=== PATIENT | female | born 1935 ===

== ENCOUNTER 2019-05-03 06:12 | Inpatient (IN) | payer MEDICARE, SELFPAY ==
--- NOTE | ~2019-05-03 | CT_ITS ---
EXAMINATION: CT cervical spine wo con EXAM DATE: 05/03/2019 08:29 INDICATION: Fall, head injury. TECHNIQUE: Spiral CT of the cervical spine was performed without contrast. Axial images were reviewe d. Coronal and sagittal reformatted images were also reviewed. The dose-length product (DLP) for thi s examination was 276.33 mGy-cm. The exposure was tailored according to patient size (auto mA exposu re control), and iterative reconstruction (ASIR) was used as additional dose reduction technique. Com parison is made to prior examination from 01/24/2019. FINDINGS: There is no evidence of acute cervical fracture. The odontoid process is intact. Pre-dens space is normal. Prevertebral soft tissue is normal. There are no soft tissue abnormalities identi fied. There is no disc space widening or traumatic vertebral body subluxation suspected. Mild to mo derate cervical disc disease. Severe left facet arthropathy at C3-4, moderate at some other cervical levels. A detailed level by level evaluation of spondylosis can be added as addendum if requested. IMPRESSION: 1. No acute cervical fracture. 2. Cervical spondylosis. Reviewed, dictated and finalized at location B.
--- NOTE | ~2019-05-03 | US_ITS ---
EXAMINATION: US renal BI DATE: 05/06/2019 10:38 INDICATION: Acute on chronic kidney disease TECHNIQUE: Multiple grayscale and Doppler ultrasound images of the kidneys were obtained. COMPARISON: None. FINDINGS: The right kidney measures 9.0 x 3.9 x 5.4 cm. The left kidney measures 8.3 x 3.6 x 6.4 cm. There is cortical parenchymal thinning of the left kidney. The left kidney demonstrates increased par enchymal echogenicity. A 1.8 cm cyst is noted in the left kidney. There is no hydronephrosis. The julia dder is normal. IMPRESSION: 1. Bilateral renal atrophy, left greater than right. Reviewed, dictated and finalized at location A.
--- NOTE | ~2019-05-03 | XR_ITS ---
XR chest 1V portable DATE: 05/03/2019 08:02 INDICATION: Fall. Aortic atherosclerosis. TECHNIQUE: Portable supine AP view on 05/03/2019 at 0802 hours COMPARISON: 10/26/2018 supine AP chest FINDINGS: Status post sternotomy. Cardiomegaly. Aortic calcification, ectasia, unfolding. No pulmonary infiltrate or consolidation, pleural effusion or pulmonary vascular congestion or pneumo thorax. Diffuse osteopenia. IMPRESSION: Cardiomegaly, aortic atherosclerosis No active disease or significant change since 11/05/2018 Reviewed, dictated and finalized at location A.
--- NOTE | ~2019-05-03 | CT_ITS ---
EXAMINATION: CT brain wo con DATE: 05/03/2019 08:28 INDICATION: Fall. TECHNIQUE: Computed tomography (CT) of the head was performed without intravenous contrast. The mA wa s adjusted according to patient size. Iterative reconstruction technique was employed. The dose-lengt h product was 605.33 mGy-cm. COMPARISON: Head CT 01/24/2019 FINDINGS: There is an old infarct involving the left frontal lobe and left insula. There are smaller old infarcts involving the right frontal lobe, parietal lobes, occipital lobes, and bilateral cerebel lum. There are scattered areas of low attenuation in the cerebral white matter. There are old infarct s in the bilateral basal ganglia and left thalamus. There is no intracranial hemorrhage, acute infarc tion, or abnormal intracranial mass lesion. The ventricles are normal in size. There are likely gerber es of ocular lens replacement surgeries. There is mild mucosal thickening in the paranasal sinuses. T here are small bilateral mastoid effusions. IMPRESSION: 1. Numerous old infarcts in the brain. 2. Stable extensive nonspecific cerebral white matter disease, which likely represents chronic small vessel ischemic disease. Reviewed, dictated and finalized at location A. IMPRESSION: 1. Numerous old infarcts in the brain. 2. Stable extensive nonspecific cerebral white matter disease, which likely rep resents chronic small vessel ischemic disease.
--- NOTE | ~2019-05-03 | XR_ITS ---
XR hip RT min 3V w AP pelvis DATE: 05/03/2019 07:18 INDICATION: Fall. Right hip injury, pain TECHNIQUE: AP pelvis. AP, lateral, crosstable lateral views of right hip COMPARISON: 11/05/2018 pelvis FINDINGS: There is a comminuted intertrochanteric fracture of the right femur. Osteopenia. Left femur compression screw and intramedullary nail. The pubic symphysis and sacroiliac joints are intact. No pelvic fracture is evident. IVC filter. Abdominal aortic and iliac and femoral arterial calcifications. IMPRESSION: Comminuted intertrochanteric fracture of right femur Reviewed, dictated and finalized at location A.
--- NOTE | ~2019-05-03 | XR_ITS ---
EXAMINATION: XR surgery orthopedic DATE: 05/04/2019 10:29 INDICATION: Intertrochanteric fracture of proximal right femur. TECHNIQUE: 4 intraoperative fluoroscopic views of right hip were obtained. I was not present. Fluoros copy exposure time was 90 seconds. COMPARISON: Right hip radiographs 05/03/2019 FINDINGS: There is a comminuted intertrochanteric fracture of proximal right femur. The main distal f racture fragment demonstrates one cortical width lateral displacement. Internal fixation is seen with antegrade intramedullary patricia, femoral head/neck screw, and distal interlocking screw. There is mild right hip osteoarthritis. IMPRESSION: 1. Comminuted intertrochanteric fracture of proximal right femur status post open reduction internal fixation. Reviewed, dictated and finalized at location A. IMPRESSION: 1. Comminuted intertrochanteric fracture of proximal right femur status post op en reduction internal fixation.
[2019-05-03 06:10] VITALS: BP 156/67; PULSE 61; RESP 16; TEMP 36.3; O2SAT 96
[2019-05-03 07:44] LABS: Basophils Percent Auto 0.5 % (0.2-1.2); Eosinophils Absolute Auto 0.1 K/mm3 (0-0.3); Eosinophils Percent Auto 0.7 % (0-4.4); Hematocrit 31.2 % (37.0-47.0); Hemoglobin 9.8 g/dL (12.0-15.0); Immature Granulocyte Absolute 0.03 K/mm3 (0.00-0.031); Immature Granulocyte Percent A 0.3 % (0-0.5); Lymphocytes Absolute Auto 0.89 K/mm3 (0.9-3.2); Lymphocytes Percent Auto 10.3 % (18.3-44.2); Mean Corpuscular HGB Conc 31.4 g/dl (32-36); Mean Corpuscular Hemoglobin 30.3 pg (26-34); Mean Corpuscular Volume 96.6 fl (80-100); Mean Platelet Volume 11.1 fl (7.4-10.4); Monocytes Absolute Auto 0.3 K/mm3 (0.1-0.6); Monocytes Percent Auto 3.7 % (2.6-8.5); Neutrophils Absolute Auto 7.3 K/mm3 (1.3-6.7); Neutrophils Percent Auto 84.5 % (45.5-73.1); Platelet Count Result 156 k/mm3 (150-375); Red Blood Count 3.23 M/mm3 (4.2-5.4); Red Cell Distribution Width 14.1 % (11.5-14.5); White Blood Count 8.7 K/mm3 (4.5-10.0)
--- NOTE | 2019-05-03 07:51 | ED.GENADULT ---
HPI - General Adult General Chief complaint: Extremity Injury, Lower Stated complaint: R HIP PAIN/FALL Time Seen by Provider: 05/03/19 06:52 Source: patient and family History of Present Illness HPI narrative: Patient is a 84 y/o female complaining of right hip pain. Daughter states that she was found on the floor at approximately 2:30 AM. She apparently had an unwitnessed fall. She state that her pain is sharp and severe. There is no pain radiation. She states that movement worsens her pain. She denies any headache, neck pain, back pain, chest pain or abdominal pain. Patient is confused and poor historian. However, daughter states that patient's mental status is at baseline. Related Data Home Medications Medication Instructions Recorded Confirmed acetaminophen [Mapap 650 mg PO Q4H PRN 01/24/19 05/03/19 (acetaminophen)] bisacodyl [Dulcolax (bisacodyl)] 10 mg [place] DAILY PRN 01/24/19 05/03/19 citalopram 20 mg PO DAILY 01/24/19 05/03/19 ipratropium-albuterol 3 ml INHALATION QID 01/24/19 05/03/19 promethazine 12.5 mg PO QID PRN 01/24/19 05/03/19 trimethoprim 100 mg PO HS 01/24/19 05/03/19 Allergies Allergy/AdvReac Type Severity Reaction Status Date / Time No Known Allergies Allergy Verified 05/03/19 06:22 Review of Systems Constitutional: Constitutional: Denies chills, Denies fever(s), Denies headache(s) and Denies weakness Eyes: Eyes: Denies blurry vision ENT: Denies headache(s) and Denies neck pain Cardiovascular: Cardiovascular: Denies chest pain and Denies dyspnea Respiratory: Respiratory: Denies cough and Denies dyspnea Gastrointestinal: Gastrointestinal: Denies abdominal pain, Denies diarrhea, Denies nausea and Denies vomiting Genitourinary: Genitourinary: Denies hematuria and Denies dysuria Musculoskeletal: Musculoskeletal: Reports as per HPI, Denies back pain, Reports arthralgias (right hip pain) and Denies neck pain Neurologic: Denies headache(s) and Denies weakness [facility] Past Medical History Medical History AAA (abdominal aortic aneurysm) Anemia Anxiety CAD (coronary artery disease) Chronic kidney disease, stage 4, severely decreased GFR CVA (cerebral vascular accident) Dementia Depression DVT (deep venous thrombosis) Esophageal stricture Esophageal ulcer GERD (gastroesophageal reflux disease) Hiatal hernia Hip fracture, left HTN (hypertension) Kidney stone Myocardial infarct UTI (urinary tract infection) Surgical History Surgical History History of appendectomy History of bladder surgery History of cardiac cath History of hysterectomy History of tubal ligation Hx of CABG Family History Family History (Updated 05/03/19 @ 10:24 by Saima Love RN) Daughter Cerebrovascular accident Social History Social History Smoking status: Former smoker Smoking end date: 02/23/84 Alcohol intake: never Substance use: never Gender identity (if verbalized by the patient): Female Spiritual care concerns: No Agree to blood products: No Exam Const: General: no acute distress and well developed Orientation/consciousness: oriented to person, oriented to place, oriented to time and patient oriented x3 HENMT: Head: normocephalic Ears: external ears normal General nose exam: Normal external nose present Eyes: General: appearance normal, both eyes and all related structures Conjunctivae: conjunctivae normal Neck: Neck: normal visual inspection and full ROM Chest: Chest palpation & inspection: normal inspection of the chest and no tenderness Resp: Effort & Inspection: normal respiratory effort Auscultation: clear to auscultation bilaterally Cardio: Rate: regular rate Rhythm: regular rhythm GI: GI Palp: No abdominal tenderness and Yes Soft to palpation Skin: General skin exam: normal color and turgor normal Neuro:
[2019-05-03 07:56] LABS: Alanine Aminotransferase 11 U/L (4-35); Albumin Level 3.6 g/dL (3.5-5.1); Alkaline Phosphatase 77 U/L (38-126); Aspartate Amino Transferase 17 U/L (14-36); Bilirubin,Total 0.5 mg/dL (0.2-1.3); Blood Urea Nitrogen 59 mg/dL (7-17); Calcium 8.6 mg/dL (8.4-10.2); Carbon Dioxide 23 mmol/L (22-30); Chloride 107 mmol/L (98-107); Estimated CRCL calculation 16 ml/min; Estimated Glomerular Filt Rate 18; Glucose 127 mg/dL (65-105); Partial Thromboplastin Time 20.3 SECONDS (22.3-36.8); Potassium 4.6 mmol/L (3.4-5.0); Prothrombin Time 12.9 Seconds (11.1-14.7); Sodium 138 mmol/L (137-145)
[2019-05-03 09:02] VITALS: BP 158/69; PULSE 74; RESP 16; O2SAT 97
[2019-05-03 09:58] VITALS: BP 103/59; PULSE 74; RESP 18; O2SAT 100
--- NOTE | 2019-05-03 10:16 | PC.NURSE ---
This patient, Bisi Leroy I, was admitted to 3 [facility] Surg Room 305-01. Patient/family oriented to hospital policies and general routines including ID bracelet, bed and alarms, visiting hours, pain management, procedures, bathroom and other care routines, personal items, smoking policy, room service/diet, and visiting hours. Valuables list has been completed. Information on how to activate the Rapid Response Team has been discussed. Patient/Family are encouraged to report perceived risks to care and to ask questions if they do not understand what they are told or what they should do.
[2019-05-03 10:17] VITALS: BMI 28.3
--- NOTE | 2019-05-03 10:34 | PC.NURSE ---
Dr Arredondo notified of patient admission and need for preoperative clearance. Also advised of patient advance directive.
[2019-05-03 14:00] VITALS: BP 150/83; PULSE 70; RESP 19; TEMP 37.1; O2SAT 97
[2019-05-03] MEDS: MORPHINE SULFATE 2 MG/ML INJ 1 MG IV PUSH ×2 (15:08→23:52)
--- NOTE | 2019-05-03 17:04 | WPDANESEPP ---
Anes - Eval Pre Procedure Procedure: Operation Date: 05/04/19 09:00 Proposed Procedures p Right Intertrochanteric Nail - Brian Hood MD Date/Time: 05/03/19 17:04 Surgeon: Sana Preop Diagnosis: Displaced IT fracture of right femur Pre Op Diagnosis: right hip fracture Patient Data Age: 84 Gender: F Height: 5 ft 5 in Weight: 77.1 kg Last Vital Signs Temp 97.4 F L 05/03/19 06:10 Pulse 74 05/03/19 09:58 Resp 18 05/03/19 09:58 BP 103/59 L 05/03/19 09:58 Pulse Ox 100 05/03/19 09:58 Allergies Allergy/AdvReac Type Severity Reaction Status Date / Time No Known Allergies Allergy Verified 05/03/19 06:22 Home Medications Medication Instructions Recorded Confirmed Type acetaminophen [Mapap 650 mg PO Q4H PRN 01/24/19 05/03/19 History (acetaminophen)] bisacodyl [Dulcolax (bisacodyl)] 10 mg [place] DAILY PRN 01/24/19 05/03/19 History citalopram 20 mg PO DAILY 01/24/19 05/03/19 History ipratropium-albuterol 3 ml INHALATION QID 01/24/19 05/03/19 History promethazine 12.5 mg PO QID PRN 01/24/19 05/03/19 History trimethoprim 100 mg PO HS 01/24/19 05/03/19 History ferrous sulfate 325 mg (65 mg 325 mg PO DAILY #90 tablet 02/16/19 05/03/19 Rx iron) tablet citalopram 10 mg tablet 10 mg PO DAILY #30 tablet 03/02/19 05/03/19 Rx pantoprazole 40 mg tablet,delayed 40 mg PO BID #90 tablet 03/22/19 05/03/19 Rx release aspirin 25 mg-dipyridamole 200 mg 1 cap PO BID #180 cap 04/13/19 05/03/19 Rx capsule,ext.release 12 hr multiphase atorvastatin 10 mg tablet 10 mg PO DAILY #90 tablet 04/13/19 05/03/19 Rx furosemide 20 mg tablet 20 mg PO DAILY #90 tablet 04/13/19 05/03/19 Rx losartan 50 mg tablet 50 mg PO DAILY #90 tablet 04/13/19 05/03/19 Rx metoprolol tartrate 50 mg tablet 50 mg PO DAILY #90 tablet 04/17/19 05/03/19 Rx Laboratory Tests 05/03/19 05/03/19 05/03/19 07:30 07:30 07:30 WBC 8.7 K/mm3 K/mm3 (4.5-10.0) RBC 3.23 M/mm3 L M/mm3 (4.2-5.4) Hgb 9.8 g/dL L g/dL (12.0-15.0) Hct 31.2 % L % (37.0-47.0) MCV 96.6 fl fl (80-100) MCH 30.3 pg pg (26-34) MCHC 31.4 g/dl L g/dl (32-36) RDW 14.1 % % (11.5-14.5) Plt Count 156 k/mm3 k/mm3 (150-375) MPV 11.1 fl H fl (7.4-10.4) Immature Gran % (Auto) 0.3 % % (0-0.5) Neut % (Auto) 84.5 % H % (45.5-73.1) Lymph % (Auto) 10.3 % L % (18.3-44.2) [place] % (Auto) 3.7 % % (2.6-8.5) Eos % (Auto) 0.7 % % (0-4.4) Baso % (Auto) 0.5 % % (0.2-1.2) Lymph # (Auto) 0.89 K/mm3 L K/mm3 (0.9-3.2) [place] # (Auto) 0.3 K/mm3 K/mm3 (0.1-0.6) Eos # (Auto) 0.1 K/mm3 K/mm3 (0-0.3) Baso # (Auto) 0.0 K/mm3 K/mm3 (0.0-0.1) Abs Immat Gran (auto) 0.03 K/mm3 K/mm3 (0.00-0.031) Absolute Neuts (auto) 7.3 K/mm3 H K/mm3 (1.3-6.7) Absolute Nucleated RBC 0.0 K/mm3 K/mm3 (0.0-0.012) Nucleated RBC % 0.0 % % (0.0-0.2) PT 12.9 Seconds Seconds (11.1-14.7) INR 1.0 APTT 20.3 SECONDS L SECONDS (22.3-36.8) Sodium 138 mmol/L mmol/L (137-145) Potassium 4.6 mmol/L mmol/L (3.4-5.0) Chloride 107 mmol/L mmol/L (98-107) Carbon Dioxide 23 mmol/L mmol/L (22-30) BUN 59 mg/dL H mg/dL (7-17) Creatinine 2.50 mg/dL H mg/dL (0.7-1.0) Estim Creat Clear Calc 16 ml/min ml/min Estimated GFR 18 L (59 - ) Glucose 127 mg/dL H mg/dL (65-105) Calcium 8.6 mg/dL mg/dL (8.4-10.2) Total Bilirubin 0.5 mg/dL mg/dL (0.2-1.3) AST 17 U/L U/L (14-36) ALT 11 U/L U/L (4-35) Alkaline Phosphatase 77 U/L U/L (38-126) Total Protein 7.0 g/dL g/dL (6.3-8.2) Albumin 3.6 g/dL g/dL (3.5-5.1) Patient hx anesthesia problems: none Family hx anest
--- NOTE | 2019-05-03 17:29 | PM.IMHP ---
H&P: HPI History of Present Illness Chief complaint: right hip fracture Narrative: Bisi Leroy I is a 84 year old female fell out of her bed onto ground @230 am this morning, accidental fall. Pt has a history of chronic confusion after a stroke in 2008. PT lives in [facility]. pt has grazed her left elbow. no other injuries reported. Pt has a historyof stroke,coronary artery disease, venous thromboembolism, status post Pace filter insertion, pulmonary fibrosis, hypertension Review of Systems Review of Systems: ROS unobtainable: unobtainable due to mental status [facility] Past Medical History Medical History AAA (abdominal aortic aneurysm) Anemia Anxiety CAD (coronary artery disease) Chronic kidney disease, stage 4, severely decreased GFR CVA (cerebral vascular accident) Dementia Depression DVT (deep venous thrombosis) Esophageal stricture Esophageal ulcer GERD (gastroesophageal reflux disease) Hiatal hernia Hip fracture, left HTN (hypertension) Kidney stone Myocardial infarct UTI (urinary tract infection) Surgical History Surgical History History of appendectomy History of bladder surgery History of cardiac cath History of hysterectomy History of tubal ligation Hx of CABG Family History Family History Daughter Cerebrovascular accident Social History Social History Smoking status: Former smoker Smoking end date: 02/23/84 Alcohol intake: never Substance use: never Gender identity (if verbalized by the patient): Female Spiritual care concerns: No Agree to blood products: No Meds Home Medications and Allergies Home Medications Medication Instructions Recorded Confirmed Type acetaminophen [Mapap 650 mg PO Q4H PRN 01/24/19 05/03/19 History (acetaminophen)] bisacodyl [Dulcolax (bisacodyl)] 10 mg [place] DAILY PRN 01/24/19 05/03/19 History citalopram 20 mg PO DAILY 01/24/19 05/03/19 History ipratropium-albuterol 3 ml INHALATION QID 01/24/19 05/03/19 History promethazine 12.5 mg PO QID PRN 01/24/19 05/03/19 History trimethoprim 100 mg PO HS 01/24/19 05/03/19 History ferrous sulfate 325 mg (65 mg 325 mg PO DAILY #90 tablet 02/16/19 05/03/19 Rx iron) tablet citalopram 10 mg tablet 10 mg PO DAILY #30 tablet 03/02/19 05/03/19 Rx pantoprazole 40 mg tablet,delayed 40 mg PO BID #90 tablet 03/22/19 05/03/19 Rx release aspirin 25 mg-dipyridamole 200 mg 1 cap PO BID #180 cap 04/13/19 05/03/19 Rx capsule,ext.release 12 hr multiphase atorvastatin 10 mg tablet 10 mg PO DAILY #90 tablet 04/13/19 05/03/19 Rx furosemide 20 mg tablet 20 mg PO DAILY #90 tablet 04/13/19 05/03/19 Rx losartan 50 mg tablet 50 mg PO DAILY #90 tablet 04/13/19 05/03/19 Rx metoprolol tartrate 50 mg tablet 50 mg PO DAILY #90 tablet 04/17/19 05/03/19 Rx Allergies Allergy/AdvReac Type Severity Reaction Status Date / Time No Known Allergies Allergy Verified 05/03/19 06:22 Vital Signs Vital Signs - 24 hr 05/03/19 06:10 05/03/19 09:02 05/03/19 09:58 Temperature 36.3 C L Pulse Rate 61 74 74 Respiratory Rate 16 16 18 Blood Pressure 156/67 H 158/69 H 103/59 L Pulse Oximetry 96 97 100 Exam Const: General: other (elderly frail confused ) Nutritional Appearance: well nourished HENMT: Head: normocephalic Eyes: General: appearance normal, both eyes and all related structures Pupils: Equal, round and reactive pupils present Neck: Neck: supple Chest: Chest palpation & inspection: normal inspection of the chest Resp: Effort & Inspection: normal respiratory effort Auscultation: clear to auscultation bilaterally Cardio: Jugular venous distension: no JVD Rhythm: regular rhythm Heart sounds: S1 normal heart sound present and S2 normal heart sound present GI: Inspection: normal
--- NOTE | 2019-05-03 18:02 | PM.CNOR ---
Assessment and Plan Assessment and plan (1) Intertrochanteric fracture of right femur: Qualifiers: Encounter type: initial encounter Fracture type: closed Fracture alignment: displaced Qualified Code(s): S72.141A - Displaced intertrochanteric fracture of right femur, initial encounter for closed fracture Code(s): S72.141A - Displaced intertrochanteric fracture of right femur, initial encounter for closed fracture Status: Acute Assessment and Plan: 84-year-old woman history of stroke with fall this morning. Right hip intertrochanteric fracture. History of previous left hip intertrochanteric fracture. Multiple medical comorbidities. Previous household ambulator, independent. Discussed nonoperative and operative treatment options with the patient. Risks and benefits of each as well as alternatives were reviewed. All of the patient's questions were answered. The risks of surgery reviewed including but not limited to: Neurovascular damage, wound complication, infection, blood clot, pulmonary embolus, stroke, myocardial infarction, and anesthetic risks up to and including . Continued pain and possible dysfunction were explained. Specific risks of the procedure including later recurrence of deformity. No guarantees were offered. If hardware used, discussed risk of failure/ breakage and possible need for removal. If complications occur, the patient understands the need for further treatment, possible further surgery. Patient and family verbalize understanding and wishes to proceed. PLAN: right hip intertrochanteric fracture fixation with intramedullary hip screw (2) Fall from other slipping, tripping, or stumbling: Code(s): W01.0XXA - Fall on same level from slipping, tripping and stumbling without subsequent striking against object, initial encounter Status: Acute (3) CVA (cerebral vascular accident): Qualifiers: CVA mechanism: occlusion Precerebral and cerebral artery: unspecified cerebral artery Qualified Code(s): I63.50 - Cerebral infarction due to unspecified occlusion or stenosis of unspecified cerebral artery Code(s): I63.9 - Cerebral infarction, unspecified Status: Acute (4) CAD (coronary artery disease): Qualifiers: Coronary Disease-Associated Artery/Lesion type: unspecified vessel or lesion type [place] vs. transplanted heart: [place] heart Associated angina: without angina Qualified Code(s): I25.10 - Atherosclerotic heart disease of [place] coronary artery without angina pectoris Code(s): I25.10 - Atherosclerotic heart disease of [place] coronary artery without angina pectoris Status: Chronic (5) Chronic kidney disease, stage 4, severely decreased GFR: Code(s): N18.4 - Chronic kidney disease, stage 4 (severe) Status: Acute History of Present Illness HPI Consult date: 05/03/19 Requesting physician: Mayda Arredondo MD Consult reason: fracture (Right hip) Chief complaint: right hip fracture Narrative: 84-year-old woman status post stroke full-time assisted living resident found down on the floor this morning. Complaint of right hip pain and inability to bear weight. Has history of left hip fracture status post surgical repair 2018. Review of Systems Constitutional: Constitutional: Denies fever(s) Eyes: Eyes: Denies blurry vision ENT: Reports Normal hearing present Cardiovascular: Cardiovascular: Denies chest pain and Denies dyspnea Respiratory: Respiratory: Denies dyspnea and Denies wheezing Gastrointestinal: Gastrointestinal: Denies abdominal pain Genitourinary: Genitourinary: Denies urinary urgency Musculoskeletal: Musculoskeletal: Reports as per HPI and Denies numbness Integumentary/Breasts: Skin/Breast: Denies changing lesions and Denies sores Neurologic: Reports as per HPI, Reports Normal hearing present, Reports Abnormal speech present ( Aphasia), Denies behavioral changes, Reports confusion, Den
[2019-05-03] MEDS: TRIMETHOPRIM 100 MG TABLET PO (21:08)
[2019-05-03] MEDS: PANTOPRAZOLE 40 MG TABLET PO (21:08)
[2019-05-03 22:00] VITALS: BP 140/75; PULSE 91; RESP 18; TEMP 37.4; O2SAT 94
[2019-05-04] VITALS (21 sets, daily range): BP systolic 109–171; BP diastolic 39–98; PULSE 74–104; RESP 14–19; TEMP 36.1–37.2; O2SAT 94–100
[2019-05-04] MEDS: MORPHINE SULFATE 2 MG/ML INJ 1 MG IV PUSH ×2 (03:32→15:05)
--- NOTE | 2019-05-04 07:18 | WPDHPUPDATE1 ---
History and Physical Update Update Date/Time: 05/04/19 07:18 History and Physical has been reviewed, including an updated exam of the patient. There are NO changes in the patient's condition. Risks, benefits, and alternatives have been discussed and questions answered. Patient agrees to proceed with procedure.
--- NOTE | 2019-05-04 07:27 | PC.NURSE ---
Pt transported to Pre-op via bed, daughter at bedside.
--- NOTE | 2019-05-04 07:52 | P.PNAN_ITS ---
Anes - Eval Final PreProcedure Day of Procedure 05/04/19 07:52 Patient weight: overweight Heart: regular rate and rhythm Lungs: decreased breath sounds Airway: Mallampati scale class II Neurological: other (alert) Last oral intake: >/= 8 hours ASA classification: IV Emergent: no Anesthetic plan: proceed Anesthesia type and monitoring: general LMA and standard monitoring Informed Consent: The patient's anesthetic plan and its attendant risks and b enefits were discussed with the patient/family/POA. Questions were solicited and answers provided to the satisfaction of the patient/family/POA.
[2019-05-04] MEDS: LACTATED RINGERS 1,000 ML 30 ML IV CONT (07:55)
[2019-05-04] MEDS: METOPROLOL TARTRATE INJ 5 MG/5 ML VIAL IV PUSH (08:05)
[2019-05-04] MEDS: TRANEXAMIC ACID 1,000MG/ISO100 1,000 MG/100 ML BAG 200 MG IVPB (08:15)
[2019-05-04] MEDS: ceFAZolin 2 GM/D5W 50 ML 2 GM/50 ML BAG IVPB (09:08)
[2019-05-04] MEDS: BUPIVACAINE/EPINEPHRINE 0.5% 10 ML VIAL 20 ML INFILTRATE (09:48)
--- NOTE | 2019-05-04 10:51 | PM.PROC ---
Procedure Note - Detailed Date of procedure: 05/04/19 Pre-op diagnosis: right hip fracture Right hip intertrochanteric fracture Post-op diagnosis: same Procedure performed: Right hip fracture reduction with intramedullary hip screw fixation Description of procedure: Implants used: Aubree natural nail 125 degree, 11.5 millimeter diameter 21.5 centimeter length nail, lag screw 10.5 millimeter x 95millimeter length. INDICATIONS: This is an 84-year-old woman who fell sustaining a right hip intertrochanteric femur fracture. Indicated for reduction and intramedullary hip screw fixation, right hip. DESCRIPTION OF PROCEDURE: After informed consent the operative extremity was marked in the preoperative holding area. Patient received intravenous antibiotics. The patient was taken to the operative room, placed in the supine position, general anesthesia induced by the anesthesia team, and was placed on a fracture table with longitudinal traction applied to the right leg. The hip fracture was reduced to near anatomic position and verified with image intensification. A time-out was performed confirming the patient, site of the surgery and plan. The right lower extremity was prepped and draped sterilely from the knee to the iliac crest region using a ChloraPrep skin solution. Incision was made just proximal to greater trochanter down to the subcutaneous tissues. Hemostasis controlled with electrocautery. Blunt dissection through the fascia to the tip of the greater trochanter. A starter awl was placed at the tip of the greater trochanter into the medullary canal of the femur. This was checked with image intensification and was in good position. Intramedullary guide patricia positioned. A one-step hand reaming done proximally. Intramedullary canal was reamed with a 12.5 millimeter flexible reamer. Neck angle selected off of preoperative radiographs temp plating. 125 degree 11.5mm X 21.5cm Nail opened on the back table and assembled. This was then inserted over the guide patricia to the correct depth. Guide patricia removed. Lag screw was then placed with a stab incision over the lateral femur using a 10 blade knife. Blunt dissection down to the lateral side of the bone. Soft tissue protectors placed. Guide pin placed in the center center position of the femoral head and measured. 95 millimeter x 10.5 millimeter lag screw placed to correct depth and verified with image intensification. Traction released from the leg and compression of the fracture performed with the external compression device. Proximal locking screw placed. Distal locking of the nail then performed. Stab incision made lateral distal thigh. Blunt dissection down lateral side of the femur. Soft tissue protector placed. Femur drilled from lateral to medial through the distal nail. Distal femur measured and the appropriate size screw placed. 5.0 mm x 32.5 mm locking screw. Image intensification confirmed the placement through the locking hole. Final image intensification confirmed reduction of the fracture and placement of the hardware. Wounds then thoroughly irrigated with antibiotic solution. Fascia repaired with 0 Vicryl interrupted suture. Subcutaneous tissue repaired with 00 Vicryl interrupted suture and skin repaired with jeff. Sterile dressings applied. Patient then awoke from anesthesia, extubated, taken to recovery room stable condition. All sponge, needle and instrument counts correct at the end the case. Implants: Aubree natural nail 125 degree, 11.5 millimeter diameter 21.5 centimeter length nail, lag screw 10.5 millimeter x 95millimeter length, 32.5 mm x 5.0 mm locking screw Anesthesia: GETA Surgeon: Brian Hood MD Cinder [employer] Mason: medical library assistant Estimated blood loss (mL): 100 Drains: No Packing: No Pathology: none sent Complications: None Condition: stable Disposition: PACU
--- NOTE | 2019-05-04 10:57 | PCRCNOTE ---
Pt was not in room. Window of time for administration has passed. See next scheduled administration.
[2019-05-04] MEDS: IPRATROPIUM BR 0.02% INH SOLN 0.5 MG/2.5 ML VIAL INHALATION ×3 (12:14→19:25)
[2019-05-04] MEDS: ALBUTEROL SULFATE NEB 2.5 MG/0.5 ML INH INHALATION ×3 (12:14→19:25)
--- NOTE | 2019-05-04 13:12 | PM.IMPN ---
Progress Note: A&P Assessment and Plan (1) Displaced intertrochanteric fracture of right femur, initial encounter for closed fracture: Code(s): S72.141A - Displaced intertrochanteric fracture of right femur, initial encounter for closed fracture Status: Acute Assessment and Plan: POD 0 right hip repair per Dr. Suero Post op management, pain management, therapy, and DVT ppx per Dr. suero Patient will likely be going to SNF on discharge PT/OT (2) Chronic kidney disease, stage 4, severely decreased GFR: Code(s): N18.4 - Chronic kidney disease, stage 4 (severe) Status: Acute Assessment and Plan: Cr 2.0 today; improving. Patient follows Dr. Roldan Trend tomorrow Consider resuming IVF Consider Dr. Roldan consult (3) HTN (hypertension): Code(s): I10 - Essential (primary) hypertension Status: Acute Assessment and Plan: BP stable at 120s sys today. Continue home antiHTN Trend (4) CVA (cerebral vascular accident): Qualifiers: CVA mechanism: occlusion Precerebral and cerebral artery: unspecified cerebral artery Qualified Code(s): I63.50 - Cerebral infarction due to unspecified occlusion or stenosis of unspecified cerebral artery Code(s): I63.9 - Cerebral infarction, unspecified Status: Acute Assessment and Plan: Old CVA, Patient is at baseline continue statins (5) CAD (coronary artery disease): Qualifiers: Associated angina: without angina Coronary Disease-Associated Artery/Lesion type: unspecified vessel or lesion type [place] vs. transplanted heart: [place] heart Qualified Code(s): I25.10 - Atherosclerotic heart disease of [place] coronary artery without angina pectoris Code(s): I25.10 - Atherosclerotic heart disease of [place] coronary artery without angina pectoris Status: Chronic Assessment and Plan: Chronic and stable, continue home meds Subjective Date/time seen: 05/04/19 13:12 Interval history: Patient is a 84 yo F with history of CAD, CVA, dementia, HTN, and CKD stage 4 among other several other comorbidities who is here for treatment for right femur fracture s/p ground level fall; POD 0 right hip repair. Patient states she feels okay after her surgery today. Pain is reasonable. She is A&Ox2 for me and daughter at bedside states this is normal for her. Daughter notes that she was to be moving into [facility] next week from her assisted living. Patient able to answer yes/no questions and upon questioning, denies f/c/ns, cp/palpitations, sob/cough, n/v, abd pain, dysuria, hematuria, cloudy urine. Review of Systems Review of Systems: All systems reviewed & are unremarkable except as noted in HPI and below Exam Narrative: Exam Narrative: Patient lying in semi-burgos's position at time of visit. Daughter at bedside visiting Const: General: cooperative, comfortable, no acute distress, well developed, alert and awake Nutritional Appearance: well nourished Orientation/consciousness: oriented to person and oriented to place HENMT: Head: normocephalic and atraumatic General nose exam: Normal nares present Face and sinus: face symmetric Mouth: Yes moist mucous membranes Eyes: General: appearance normal, both eyes and all related structures EOM: EOMs intact bilaterally Neck: Neck: trachea midline and supple Resp: Effort & Inspection: normal respiratory effort Auscultation: clear to auscultation bilaterally Cardio: Rate: regular rate Rhythm: regular rhythm Heart sounds: no murmurs GI: Inspection: no edema GI Palp: No abdominal tenderness and Yes Soft to palpation Auscultation: normal bowel sounds and normoactive bowel sounds Skin: General skin exam: normal color and no rashes or lesion
[2019-05-04 13:37] LABS: Basophils Absolute Auto 0.1 K/mm3 (0.0-0.1); Basophils Percent Auto 0.4 % (0.2-1.2); Hematocrit 31.1 % (37.0-47.0); Hemoglobin 9.3 g/dL (12.0-15.0); Immature Granulocyte Absolute 0.05 K/mm3 (0.00-0.031); Immature Granulocyte Percent A 0.4 % (0-0.5); Lymphocytes Absolute Auto 0.44 K/mm3 (0.9-3.2); Lymphocytes Percent Auto 3.7 % (18.3-44.2); Mean Corpuscular HGB Conc 29.9 g/dl (32-36); Mean Corpuscular Hemoglobin 30.2 pg (26-34); Mean Platelet Volume 11.5 fl (7.4-10.4); Monocytes Absolute Auto 0.4 K/mm3 (0.1-0.6); Monocytes Percent Auto 3.3 % (2.6-8.5); Neutrophils Absolute Auto 10.9 K/mm3 (1.3-6.7); Neutrophils Percent Auto 92.2 % (45.5-73.1); Platelet Count Result 165 k/mm3 (150-375); Red Blood Count 3.08 M/mm3 (4.2-5.4); Red Cell Distribution Width 14.5 % (11.5-14.5); White Blood Count 11.8 K/mm3 (4.5-10.0)
[2019-05-04 14:01] LABS: Blood Urea Nitrogen 47 mg/dL (7-17); Calcium 8.6 mg/dL (8.4-10.2); Carbon Dioxide 25 mmol/L (22-30); Chloride 108 mmol/L (98-107); Estimated CRCL calculation 19 ml/min; Estimated Glomerular Filt Rate 24; Glucose 156 mg/dL (65-105); Magnesium 2.4 mg/dL (1.6-2.3); Potassium 4.5 mmol/L (3.4-5.0); Sodium 140 mmol/L (137-145)
--- NOTE | 2019-05-04 14:04 | PCPTNOTE ---
Attempted to see patient for Physical Therapy evaluation this afternoon, patient states she is unable to participate at this time secondary to tired and wanting to start therapy tomorrow, will attempt at a later time.
[2019-05-04] MEDS: FUROSEMIDE 20 MG TABLET PO (15:12)
[2019-05-04] MEDS: PANTOPRAZOLE 40 MG TABLET PO ×2 (15:12→21:07)
[2019-05-04] MEDS: FERROUS SULFATE 324 MG TABLET PO (15:12)
[2019-05-04] MEDS: ATORVASTATIN 10 MG TABLET PO (15:12)
[2019-05-04] MEDS: CITALOPRAM HYDROBROMIDE 10 MG TABLET PO (15:12)
[2019-05-04] MEDS: CITALOPRAM HYDROBROMIDE 20 MG TABLET PO (15:12)
[2019-05-04] MEDS: LOSARTAN POTASSIUM 50 MG TABLET PO (15:12)
[2019-05-04] MEDS: METOPROLOL TARTRATE 50 MG TAB PO (15:13)
--- NOTE | 2019-05-04 15:30 | PC.NURSE ---
Pt returned to room 305 bed 1
[2019-05-04] MEDS: DOCUSATE SODIUM 100 MG CAPSULE PO (18:14)
[2019-05-04] MEDS: RIVAROXABAN 10 MG TABLET PO (18:15)
[2019-05-04] MEDS: TRIMETHOPRIM 100 MG TABLET PO (21:07)
[2019-05-04] MEDS: FAMOTIDINE 20 MG TABLET PO (21:07)
[2019-05-05] VITALS (17 sets, daily range): BP systolic 90–142; BP diastolic 42–68; PULSE 77–97; RESP 16–20; TEMP 36.4–37.3; O2SAT 91–99
[2019-05-05 05:31] LABS: Basophils Percent Auto 0.3 % (0.2-1.2); Eosinophils Percent Auto 0.1 % (0-4.4); Hematocrit 25.1 % (37.0-47.0); Hemoglobin 7.6 g/dL (12.0-15.0); Immature Granulocyte Absolute 0.05 K/mm3 (0.00-0.031); Immature Granulocyte Percent A 0.5 % (0-0.5); Mean Corpuscular HGB Conc 30.3 g/dl (32-36); Mean Corpuscular Hemoglobin 29.9 pg (26-34); Mean Corpuscular Volume 98.8 fl (80-100); Monocytes Percent Auto 9.7 % (2.6-8.5); Neutrophils Absolute Auto 7.9 K/mm3 (1.3-6.7); Neutrophils Percent Auto 74.4 % (45.5-73.1); Platelet Count Result 146 k/mm3 (150-375); Red Blood Count 2.54 M/mm3 (4.2-5.4); Red Cell Distribution Width 14.4 % (11.5-14.5); White Blood Count 10.7 K/mm3 (4.5-10.0)
[2019-05-05 05:57] LABS: Blood Urea Nitrogen 58 mg/dL (7-17); Calcium 8.5 mg/dL (8.4-10.2); Carbon Dioxide 25 mmol/L (22-30); Chloride 107 mmol/L (98-107); Estimated CRCL calculation 17 ml/min; Estimated Glomerular Filt Rate 20; Glucose 114 mg/dL (65-105); Magnesium 2.5 mg/dL (1.6-2.3); Potassium 4.5 mmol/L (3.4-5.0); Sodium 137 mmol/L (137-145)
[2019-05-05] MEDS: IPRATROPIUM BR 0.02% INH SOLN 0.5 MG/2.5 ML VIAL INHALATION (07:51)
[2019-05-05] MEDS: ALBUTEROL SULFATE NEB 2.5 MG/0.5 ML INH INHALATION (07:51)
--- NOTE | 2019-05-05 08:02 | WPDANESPN ---
Anes - Prog Note Post-Op Date/Time: 05/05/19 08:02 Cardiovascular status: normal Respiratory status: normal Airway patency: baseline Mental status: baseline Post-Op hydration status: normal Vital Signs: Last Vital Signs Temp 37.2 C 05/05/19 06:00 Pulse 88 05/05/19 08:01 Resp 20 05/05/19 08:01 BP 113/56 L 05/05/19 06:00 Pulse Ox 91 05/05/19 07:51 I/O: Intake & Output 05/04/19 05/05/19 05/05/19 23:59 07:59 15:59 Intake Total 125 120 Output Total 125 250 Balance 0 -130 Laboratory Tests 05/05/19 05:13 05/05/19 05:13 05/04/19 05/04/19 05/05/19 13:06 13:06 05:13 WBC 11.8 H 10.7 H RBC 3.08 L 2.54 L Hgb 9.3 L 7.6 L Hct 31.1 L 25.1 L MCV 101.0 H 98.8 MCH 30.2 29.9 MCHC 29.9 L 30.3 L RDW 14.5 14.4 Plt Count 165 146 L MPV 11.5 H 11.0 H Immature Gran % (Auto) 0.4 0.5 Neut % (Auto) 92.2 H 74.4 H Lymph % (Auto) 3.7 L 15.0 L [place] % (Auto) 3.3 9.7 H Eos % (Auto) 0.0 0.1 Baso % (Auto) 0.4 0.3 Lymph # (Auto) 0.44 L 1.60 [place] # (Auto) 0.4 1.0 H Eos # (Auto) 0.0 0.0 Baso # (Auto) 0.1 0.0 Abs Immat Gran (auto) 0.05 H 0.05 H Absolute Neuts (auto) 10.9 H 7.9 H Absolute Nucleated RBC 0.0 0.0 Nucleated RBC % 0.0 0.0 Sodium 140 Potassium 4.5 Chloride 108 H Carbon Dioxide 25 BUN 47 H D Creatinine 2.00 H Estim Creat Clear Calc 19 Estimated GFR 24 L Glucose 156 H Calcium 8.6 Magnesium 2.4 H 05/05/19 05:13 WBC RBC Hgb Hct MCV MCH MCHC RDW Plt Count MPV Immature Gran % (Auto) Neut % (Auto) Lymph % (Auto) [place] % (Auto) Eos % (Auto) Baso % (Auto) Lymph # (Auto) [place] # (Auto) Eos # (Auto) Baso # (Auto) Abs Immat Gran (auto) Absolute Neuts (auto) Absolute Nucleated RBC Nucleated RBC % Sodium 137 Potassium 4.5 Chloride 107 Carbon Dioxide 25 BUN 58 H D Creatinine 2.30 H Estim Creat Clear Calc 17 Estimated GFR 20 L Glucose 114 H Calcium 8.5 Magnesium 2.5 H Post-procedural complaints: none Patient Feedback: Patient satisfied with anesthetic care.
--- NOTE | 2019-05-05 08:05 | PM.PNORT ---
Progress Note: A&P Assessment and Plan (1) Intertrochanteric fracture of right femur: Onset Date: 05/04/19 Qualifiers: Encounter type: subsequent encounter Fracture type: closed Fracture alignment: displaced Fracture healing: with routine healing Qualified Code(s): S72.141D - Displaced intertrochanteric fracture of right femur, subsequent encounter for closed fracture with routine healing Code(s): S72.141A - Displaced intertrochanteric fracture of right femur, initial encounter for closed fracture Status: Acute Assessment and Plan: Postoperative day 1. Right hip intertrochanteric fracture fixation. Awake and alert. Pain controlled. PT/OT with weight-bearing as tolerated. Most likely will require placement. Acute blood-loss anemia. Plan transfusion 2 units. (2) Anemia: Qualifiers: Anemia type: other cause Other causes of anemia: acute posthemorrhagic Qualified Code(s): D62 - Acute posthemorrhagic anemia Code(s): D64.9 - Anemia, unspecified Status: Acute Assessment and Plan: Secondary to fracture and surgical blood loss. Transfusion today. Subjective Subjective Date/Time Seen: 05/05/19 08:05 Patient awake and alert. Mild complaints of right hip pain. No problems overnight. Eating without difficulty. Exam Const: General: healthy appearing; No in distress or confusion Orientation/consciousness: patient oriented x3 and No confusion HENMT: Head: normal to inspection, normocephalic and atraumatic Eyes: Conjunctivae: conjunctivae normal Sclera: sclerae normal Resp: Effort & Inspection: normal respiratory effort and no audible wheezes Neuro: General: patient oriented x3 and No confusion Extrem: Other: Right hip incision clean dry and intact. Dressings dry and in place. Mild swelling. Mild ecchymosis. Muscle compartments soft. Able to flex and extend ankle and toes. Good sensation to light touch throughout. Palpable dorsalis pedis pulse and good capillary refill. Psych: Affect: normal affect Objective Data Vital Signs Vital Signs: Vital Signs - 24 hr 05/04/19 10:38 05/04/19 10:50 05/04/19 11:05 Temperature 97.0 F L Pulse Rate 103 H 103 H 104 H Respiratory Rate 14 16 19 Blood Pressure 134/98 H 171/85 H 150/71 H Pulse Oximetry 100 100 98 05/04/19 11:20 05/04/19 11:35 05/04/19 11:40 Temperature Pulse Rate 100 98 96 Respiratory Rate 18 16 17 Blood Pressure 147/83 H 145/83 H 155/82 H Pulse Oximetry 99 99 99 05/04/19 12:10 05/04/19 12:14 05/04/19 12:20 Temperature 98.9 F Pulse Rate 100 96 97 Respiratory Rate 16 18 18 Blood Pressure 123/71 Pulse Oximetry 97 05/04/19 12:40 05/04/19 13:40 05/04/19 15:58 Temperature 98.8 F 98.5 F Pulse Rate 97 92 88 Respiratory Rate 17 18 18 Blood Pressure 133/76 125/73 Pulse Oximetry 98 98 05/04/19 16:01 05/04/19 16:05 05/04/19 17:40 Temperature 97.8 F Pulse Rate 85 77 Respiratory Rate 18 16 Blood Pressure 133/75 Pulse Oximetry 100 96 05/04/19 19:25 05/04/19 19:37 05/04/19 22:00 Temperature 98.7 F Pulse Rate 77 74 84 Respiratory Rate 18 18 18 Blood Pressure 109/39 L Pulse Oximetry 95 97 05/05/19 02:00 05/05/19 06:00 05/05/19 07:51 Temperature 98.5 F 98.9 F Pulse Rate 83 87 97 Respiratory Rate 18 18 20 Blood Pressure 111/52 L 113/56 L Pulse Oximetry 99 95 91 05/05/19 08:01 Temperature Pulse Rate 88 Respiratory Rate 20 Blood Pressure Pulse Oximetry Intake/Output Intake/Output: Intake & Output 05/02/19 05/03/19 05/04/19 05/05/19 23:59 23:59 23:59 23:59 Intake Total 365 725 120 Output Total 650 655 250 Balance -285 70 -130 Meds/Results Medications: Active Medications Generic Name Dose Route Start Last Admin Trade Name Freq PRN Reason Stop Dose Admin Acetaminophen 650 mg 05/03/19 17:42 Tylenol Tablet PO Q4H PRN Fever Or Pain Al Hydrox/Mg Hydrox/Simethicone 30 ml 05/04/19 11:46 M
[2019-05-05] MEDS: ATORVASTATIN 10 MG TABLET PO (08:29)
[2019-05-05] MEDS: CITALOPRAM HYDROBROMIDE 20 MG TABLET PO (08:30)
[2019-05-05] MEDS: CITALOPRAM HYDROBROMIDE 10 MG TABLET PO (08:30)
[2019-05-05] MEDS: DOCUSATE SODIUM 100 MG CAPSULE PO ×2 (08:30→16:00)
[2019-05-05] MEDS: LOSARTAN POTASSIUM 50 MG TABLET PO (08:31)
[2019-05-05] MEDS: FUROSEMIDE 20 MG TABLET PO (08:31)
[2019-05-05] MEDS: FERROUS SULFATE 324 MG TABLET PO (08:31)
[2019-05-05] MEDS: FAMOTIDINE 20 MG TABLET PO ×2 (08:31→20:34)
[2019-05-05] MEDS: METOPROLOL TARTRATE 50 MG TAB PO (08:32)
[2019-05-05] MEDS: PANTOPRAZOLE 40 MG TABLET PO ×2 (08:32→20:38)
--- NOTE | 2019-05-05 08:58 | PM.IMPN ---
Progress Note: A&P Assessment and Plan (1) Displaced intertrochanteric fracture of right femur, initial encounter for closed fracture: Code(s): S72.141A - Displaced intertrochanteric fracture of right femur, initial encounter for closed fracture Status: Acute Assessment and Plan: POD 1 right hip repair per Dr. Hood Post op management, pain management, therapy, and DVT ppx per Dr. Hood Patient to be getting [address] Hood for blood loss from surgery Patient will likely be going to SNF on discharge PT/OT (2) Chronic kidney disease, stage 4, severely decreased GFR: Code(s): N18.4 - Chronic kidney disease, stage 4 (severe) Status: Acute Assessment and Plan: Cr 2.3 today; improving. Patient follows Dr. Roldan Trend tomorrow Consider resuming IVF tomorrow; patient will have 2 u pRBCs today; avoid volume overload Consult Nephrology today (3) HTN (hypertension): Code(s): I10 - Essential (primary) hypertension Status: Acute Assessment and Plan: BP stable at 110s sys today. Continue home antihypertensives Trend (4) CVA (cerebral vascular accident): Qualifiers: CVA mechanism: occlusion Precerebral and cerebral artery: unspecified cerebral artery Qualified Code(s): I63.50 - Cerebral infarction due to unspecified occlusion or stenosis of unspecified cerebral artery Code(s): I63.9 - Cerebral infarction, unspecified Status: Acute Assessment and Plan: Old CVA, Patient is at baseline continue statins (5) CAD (coronary artery disease): Qualifiers: Coronary Disease-Associated Artery/Lesion type: unspecified vessel or lesion type [place] vs. transplanted heart: [place] heart Associated angina: without angina Qualified Code(s): I25.10 - Atherosclerotic heart disease of [place] coronary artery without angina pectoris Code(s): I25.10 - Atherosclerotic heart disease of [place] coronary artery without angina pectoris Status: Chronic Assessment and Plan: Chronic and stable, continue home meds (6) Anemia: Qualifiers: Anemia type: other cause Other causes of anemia: acute posthemorrhagic Qualified Code(s): D62 - Acute posthemorrhagic anemia Code(s): D64.9 - Anemia, unspecified Status: Acute Assessment and Plan: Appears to have anemia of chronic disease; likely CKD. Acute on chronic with blood loss from surgery Patient to have [address] Hood Monitor PT/OT to time therapy between transfusions today Subjective Date/time seen: 05/05/19 08:58 Interval history: Patient is a 84 yo F with history of CAD, CVA, dementia, HTN, and CKD stage 4 among other several other comorbidities who is here for treatment for right femur fracture s/p ground level fall; POD 1 right hip repair. Patient states she feels okay after her surgery today. Pain is reasonable, but daughter states due to her chronic dementia, they are gauging her pain on facial espressions. Patient able to answer yes/no questions and upon questioning, denies fevers, cp/palpitations, sob, n/v, abd pain. Daughter states she ate a good meal this morning Review of Systems Review of Systems: All systems reviewed & are unremarkable except as noted in HPI and below (Limited due to mental status) Exam Narrative: Exam Narrative: Patient lying in semi-burgos's position at time of visit. family in room visiting Const: General: cooperative, comfortable, no acute distress, well developed, alert and awake Nutritional Appearance: well nourished Orientation/consciousness: oriented to person and oriented to place HENMT: Head: normocephalic and atraumatic General nose exam: Normal nares present
[2019-05-05] MEDS: SODIUM CHLORIDE 0.9% IV 250 ML 30 ML IV CONT (11:55)
[2019-05-05] MEDS: MORPHINE SULFATE 2 MG/ML INJ 1 MG IV PUSH (12:14)
[2019-05-05] MEDS: RIVAROXABAN 10 MG TABLET PO (16:00)
--- NOTE | 2019-05-05 16:17 | PC.NURSE ---
Patient bladder scanned at 1610, showed a total of 284mL.
[2019-05-05] MEDS: SODIUM CHLORIDE 0.9% IV 250 ML 30 ML (17:43)
--- NOTE | 2019-05-05 18:06 | PM.CNNEP ---
Assessment and Plan Assessment and plan (1) CKD (chronic kidney disease): Qualifiers: Chronic kidney disease stage: unspecified stage Qualified Code(s): N18.9 - Chronic kidney disease, unspecified Code(s): N18.9 - Chronic kidney disease, unspecified Status: Acute (2) Intertrochanteric fracture of right femur: Onset Date: 05/04/19 Qualifiers: Encounter type: subsequent encounter Fracture alignment: displaced Fracture healing: with routine healing Fracture type: closed Qualified Code(s): S72.141D - Displaced intertrochanteric fracture of right femur, subsequent encounter for closed fracture with routine healing Code(s): S72.141A - Displaced intertrochanteric fracture of right femur, initial encounter for closed fracture Status: Acute (3) HTN (hypertension): Code(s): I10 - Essential (primary) hypertension Status: Acute (4) CVA (cerebral vascular accident): Qualifiers: CVA mechanism: occlusion Precerebral and cerebral artery: unspecified cerebral artery Qualified Code(s): I63.50 - Cerebral infarction due to unspecified occlusion or stenosis of unspecified cerebral artery Code(s): I63.9 - Cerebral infarction, unspecified Status: Acute Assessment and Plan: . Additional Plan Bisi has chronic kidney disease as evidenced by her blood tests in the last few years. However, as already mentioned, in 2017 - 2018, her baseline creatinine normally ran around 1.0 - 1.2 mg/dL up until October of 2018 when abruptly increased to 2.3 mg/dL. Further testing 3 months later still showed her creatinine up to 2.3 mg/dL and labs even on admission on this hospitalization showed the same value as well. Since her hospitalization, her creatinine has fluctuated anywhere from 2.0 - 2.5 mg/dL. This change in creatinine would argue that she went from stage III to stage IV kidney disease although the exact reason is unclear although one could argue this is probably/possibly simple progression of disease although I cannot deny the possibility of some other acute insult in the last 6 months. Given her previous hospitalizations have shown that she is somewhat prone to dehydration as well as urinary tract infections, I will check urine electrolytes, UA with reflex culture, and a renal ultrasound to ensure we are not missing any other issues and/or problems particularly if there is a reversible component to her higher creatinine at this time. Given her age and dementia, checking a serological workup would probably serve no purpose as I very much doubt she would tolerate any type of immunosuppressive therapy if indeed she had some type of glomerulonephritis, autoimmune disease, or vasculitis. For now, I would continue supportive therapy in the form of packed red blood cell transfusions and gentle IV fluid hydration on the assumption that perhaps maybe she does have a component of volume depletion and follow the trend of her repeat labs and urine output. I will continue follow the patient with you while she remains hospitalized to make further recommendations during her hospital course. Thank you for allowing me me to participate in the care of this patient. History of Present Illness Reason for Consult Consult date: 05/05/19 Reason for consult: chronic renal failure Chief Complaint Chief complaint: right hip fracture History of Present Illness Narrative: The patient is an 83-year-old female with past medical history as outlined below who presented to the [facility] emergency department via EMS from [facility] for evaluation of right hip pain. All of the information I have obtained is from review of the electronic medical record and discussion with the nurses involved in her care as well as family members at bedside as the patient is a poor historian and confused at baseline (alert and oriented x 1). According to her daughter, the patient was apparentl
[2019-05-05] MEDS: TRIMETHOPRIM 100 MG TABLET PO (20:38)
[2019-05-05] MEDS: ACETAMINOPHEN 325 MG TABLET 650 MG PO (20:38)
[2019-05-06] VITALS (8 sets, daily range): BP systolic 95–141; BP diastolic 56–68; PULSE 77–100; RESP 16–18; TEMP 36.4–36.7; O2SAT 89–100
[2019-05-06 06:19] LABS: Basophils Absolute Auto 0.1 K/mm3 (0.0-0.1); Basophils Percent Auto 0.6 % (0.2-1.2); Eosinophils Absolute Auto 0.2 K/mm3 (0-0.3); Hematocrit 28.3 % (37.0-47.0); Hemoglobin 8.9 g/dL (12.0-15.0); Immature Granulocyte Absolute 0.04 K/mm3 (0.00-0.031); Immature Granulocyte Percent A 0.5 % (0-0.5); Immature Platelet Fraction Pct 3.6 % (0.9-11.2); Lymphocytes Absolute Auto 1.31 K/mm3 (0.9-3.2); Lymphocytes Percent Auto 15.3 % (18.3-44.2); Mean Corpuscular HGB Conc 31.4 g/dl (32-36); Mean Corpuscular Hemoglobin 29.7 pg (26-34); Mean Corpuscular Volume 94.3 fl (80-100); Mean Platelet Volume 10.9 fl (7.4-10.4); Monocytes Absolute Auto 0.7 K/mm3 (0.1-0.6); Monocytes Percent Auto 8.5 % (2.6-8.5); Neutrophils Absolute Auto 6.3 K/mm3 (1.3-6.7); Neutrophils Percent Auto 73.1 % (45.5-73.1); Platelet Count Result 126 k/mm3 (150-375); Red Cell Distribution Width 15.4 % (11.5-14.5); White Blood Count 8.6 K/mm3 (4.5-10.0)
[2019-05-06 06:34] LABS: Blood Urea Nitrogen 65 mg/dL (7-17); Calcium 8.3 mg/dL (8.4-10.2); Carbon Dioxide 26 mmol/L (22-30); Chloride 107 mmol/L (98-107); Estimated CRCL calculation 14 ml/min; Estimated Glomerular Filt Rate 17; Glucose 98 mg/dL (65-105); Magnesium 2.6 mg/dL (1.6-2.3); Potassium 4.7 mmol/L (3.4-5.0); Sodium 135 mmol/L (137-145)
[2019-05-06] MEDS: ACETAMINOPHEN 325 MG TABLET 650 MG PO (08:50)
[2019-05-06] MEDS: CITALOPRAM HYDROBROMIDE 10 MG TABLET PO (08:51)
[2019-05-06] MEDS: ATORVASTATIN 10 MG TABLET PO (08:51)
[2019-05-06] MEDS: DOCUSATE SODIUM 100 MG CAPSULE PO ×2 (08:52→17:26)
[2019-05-06] MEDS: CITALOPRAM HYDROBROMIDE 20 MG TABLET PO (08:52)
[2019-05-06] MEDS: FAMOTIDINE 20 MG TABLET PO ×2 (08:52→20:21)
[2019-05-06] MEDS: FERROUS SULFATE 324 MG TABLET PO (08:52)
[2019-05-06] MEDS: METOPROLOL TARTRATE 50 MG TAB PO (08:53)
[2019-05-06] MEDS: LOSARTAN POTASSIUM 50 MG TABLET PO (08:53)
[2019-05-06] MEDS: FUROSEMIDE 20 MG TABLET PO (08:53)
[2019-05-06] MEDS: PANTOPRAZOLE 40 MG TABLET PO ×2 (08:54→20:21)
--- NOTE | 2019-05-06 11:19 | PM.IMPN ---
Progress Note: A&P Assessment and Plan (1) Displaced intertrochanteric fracture of right femur, initial encounter for closed fracture: Code(s): S72.141A - Displaced intertrochanteric fracture of right femur, initial encounter for closed fracture Status: Acute Assessment and Plan: POD 2 right hip repair per Dr. Hood. Patient transfused [address] Hood for blood loss from surgery. Daughter states she is doing well since surgery, but not working that much with PT/OT. Post op management, pain management, therapy, and DVT ppx per Dr. Hood Patient will likely be going to SNF on discharge PT/OT (2) Chronic kidney disease, stage 4, severely decreased GFR: Code(s): N18.4 - Chronic kidney disease, stage 4 (severe) Status: Acute Assessment and Plan: Cr 2.7 today; improving. Patient follows Dr. Roldan Trend tomorrow Light IVF today Renal US pending Nephrology following and appreciate recommendations (3) HTN (hypertension): Code(s): I10 - Essential (primary) hypertension Status: Acute Assessment and Plan: BP stable at 120s sys today. Continue home antihypertensives Trend (4) CVA (cerebral vascular accident): Qualifiers: CVA mechanism: occlusion Precerebral and cerebral artery: unspecified cerebral artery Qualified Code(s): I63.50 - Cerebral infarction due to unspecified occlusion or stenosis of unspecified cerebral artery Code(s): I63.9 - Cerebral infarction, unspecified Status: Acute Assessment and Plan: Old CVA, Patient is at baseline continue statins (5) CAD (coronary artery disease): Qualifiers: Coronary Disease-Associated Artery/Lesion type: unspecified vessel or lesion type [place] vs. transplanted heart: [place] heart Associated angina: without angina Qualified Code(s): I25.10 - Atherosclerotic heart disease of [place] coronary artery without angina pectoris Code(s): I25.10 - Atherosclerotic heart disease of [place] coronary artery without angina pectoris Status: Chronic Assessment and Plan: Chronic and stable, continue home meds (6) Anemia: Qualifiers: Anemia type: other cause Other causes of anemia: acute posthemorrhagic Qualified Code(s): D62 - Acute posthemorrhagic anemia Code(s): D64.9 - Anemia, unspecified Status: Acute Assessment and Plan: Stable; Hgb 8.9 today. Appears to have anemia of chronic disease; likely CKD. Acute on chronic with blood loss from surgery. Patient transfused [address] Hood Monitor; trend Hgb tomorrow Subjective Date/time seen: 05/06/19 11:19 Interval history: Patient is a 84 yo F with history of CAD, CVA, dementia, HTN, and CKD stage 4 among other several other comorbidities who is here for treatment for right femur fracture s/p ground level fall; POD 2 right hip repair. Patient states she feels okay. No complaints. She states she has no pain anywhere, but she is a not a reliable historian given her dementia. Daughter states she has not had a BM since admission. Daughter also notes her pain has been reasonable and not asking for fentanyl today. Patient able to answer yes/no questions and upon questioning, denies fevers, cp/palpitations, sob, cough, n/v, abd pain Review of Systems Review of Systems: All systems reviewed & are unremarkable except as noted in HPI and below (Limited due to mental status) Exam Narrative: Exam Narrative: Patient lying in semi-burgos's position at time of visit. family in room visiting Const: General: cooperative, comfortable, no acute distress, well developed, alert and awake Nutritional Appearance: well nourished Orientation/consciousness: oriented to
--- NOTE | 2019-05-06 11:19 | PM.PNNEP ---
Progress Note: A&P Assessment and Plan (1) CKD (chronic kidney disease): Qualifiers: Chronic kidney disease stage: unspecified stage Qualified Code(s): N18.9 - Chronic kidney disease, unspecified Code(s): N18.9 - Chronic kidney disease, unspecified Status: Acute Assessment and Plan: creatinine was 1.0 - 1.2 in 2018 - 2018 creatinine abruptily increased to 2.4mg/dl in October 2018 where it has remained creatinine up more today.... has history of UTI and dehydration in the past -- check UA, urine culutre, and urine electrolytes as well as renal ultrasound follow repeat labs and UOP (2) Intertrochanteric fracture of right femur: Onset Date: 05/04/19 Qualifiers: Encounter type: subsequent encounter Fracture alignment: displaced Fracture healing: with routine healing Fracture type: closed Qualified Code(s): S72.141D - Displaced intertrochanteric fracture of right femur, subsequent encounter for closed fracture with routine healing Code(s): S72.141A - Displaced intertrochanteric fracture of right femur, initial encounter for closed fracture Status: Acute Assessment and Plan: s/p hip fracture reduction with intramedullary hip screw fixation Orthopedics following local wound care pain control (3) Anemia: Qualifiers: Anemia type: other cause Other causes of anemia: acute posthemorrhagic Qualified Code(s): D62 - Acute posthemorrhagic anemia Code(s): D64.9 - Anemia, unspecified Status: Acute Assessment and Plan: partly due to CKD but post-operative loss as well s/p PRBC transfusion yesterday follow H/H (4) HTN (hypertension): Code(s): I10 - Essential (primary) hypertension Status: Acute Assessment and Plan: reasonable control at this time would avoid overcontrol as this may reduce renal perfusion Will continue to follow. Subjective Date/time seen: 05/06/19 11:19 No acute distress noted so assume pain control is reasonably controlled (although with her dementia, difficult to know for sure); no other issues or events overnight or earlier this AM. Exam Narrative: Exam Narrative: General: Elderly female in NAD Heart: normal S1 and S2; no rub Lungs: clear to auscultation Abdomen: soft, nontender, nondistended, positive bowel sounds Extremities: no cyanosis or clubbing; trace edema Skin: warm and dry Objective Data Vital Signs Vital Signs: Vital Signs Temp Pulse Resp BP Pulse Ox 05/06/19 09:18 91 05/06/19 09:17 89 L 05/06/19 09:02 100 05/06/19 08:53 77 05/06/19 08:46 87 18 125/66 100 05/06/19 06:00 36.7 C 78 16 141/66 H 96 05/05/19 22:00 36.4 C 80 18 104/54 L 98 05/05/19 20:30 37.2 C 80 16 113/42 L 95 05/05/19 17:45 36.8 C 80 18 117/51 L 97 05/05/19 17:23 37.0 C 81 16 113/55 L 94 05/05/19 15:59 36.8 C 82 18 126/68 98 05/05/19 15:58 36.7 C 77 20 142/44 H 97 05/05/19 14:05 36.8 C 80 20 90/63 L 97 05/05/19 13:05 37.2 C 80 16 109/54 L 99 05/05/19 12:05 37.1 C 79 18 94/57 L 98 05/05/19 11:50 36.9 C 85 20 105/58 L 97 Intake/Output Intake/Output: Intake & Output 05/03/19 05/04/19 05/05/19 05/06/19 23:59 23:59 23:59 23:59 Intake Total 841 967 1527 Output Total 650 655 750 Balance -285 120 820 Meds/Results Medications: Active Medications Generic Name Dose Route Start Last Admin Trade Name [place] PRN Reason Stop Dose Admin Acetaminophen 650 mg 05/03/19 17:42 05/06/19 08:50 Tylenol Tablet PO 650 mg Q4H PRN Administration Fever Or Pain Al Hydrox/Mg Hydrox/Simethicone 30 ml 05/04/19 11:46 Mylanta PO Q6H PRN Indigestion Albuterol 2.5 mg 05/05/19 12:00 Albuterol Sulf Neb 2.5mg/0.5ml INHALATION QIDRT PRN wheezing, sob Atorvastatin Calcium 10 mg 05/04/19 09:00 05/06/19 08:51 Lipitor PO 10 mg DAILY [facility]
[2019-05-06] MEDS: SODIUM CHLORIDE 0.9% IV 1,000 ML 50 ML IV CONT (12:37)
--- NOTE | 2019-05-06 14:45 | PM.PNORT ---
Progress Note: A&P Additional Plan POD 2 R GAMMA JAISON DOING WELL WITH INCISON CLEAN AND MINIMAL DISCHARGE. CONT PT. Subjective Subjective Date/Time Seen: 05/06/19 14:45 pod 2 DOING WELL. HAS SOME CONFUSION. NOT MUCH DIFFERENT FROM BASE LINE. 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 Objective Data Vital Signs Vital Signs: Vital Signs - 24 hr 05/05/19 15:58 05/05/19 15:59 05/05/19 17:23 Temperature 36.7 C 36.8 C 37.0 C Pulse Rate 77 82 81 Respiratory Rate 20 18 16 Blood Pressure 142/44 H 126/68 113/55 L Pulse Oximetry 97 98 94 05/05/19 17:45 05/05/19 20:30 05/05/19 22:00 Temperature 36.8 C 37.2 C 36.4 C Pulse Rate 80 80 80 Respiratory Rate 18 16 18 Blood Pressure 117/51 L 113/42 L 104/54 L Pulse Oximetry 97 95 98 05/06/19 06:00 05/06/19 08:46 05/06/19 08:53 Temperature 36.7 C Pulse Rate 78 87 77 Respiratory Rate 16 18 Blood Pressure 141/66 H 125/66 Pulse Oximetry 96 100 05/06/19 09:02 05/06/19 09:17 05/06/19 09:18 Temperature Pulse Rate Respiratory Rate Blood Pressure Pulse Oximetry 100 89 L 91 05/06/19 14:12 Temperature 36.4 C Pulse Rate 100 Respiratory Rate 16 Blood Pressure 95/56 L Pulse Oximetry 100 Intake/Output Intake/Output: Intake & Output 05/03/19 05/04/19 05/05/19 05/06/19 23:59 23:59 23:59 23:59 Intake Total 844 811 6306 120 Output Total 650 655 750 Balance -285 120 820 120 Meds/Results Medications: Active Medications Generic Name Dose Route Start Last Admin Trade Name Freq PRN Reason Stop Dose Admin Acetaminophen 650 mg 05/03/19 17:42 05/06/19 08:50 Tylenol Tablet PO 650 mg Q4H PRN Administration Fever Or Pain Al Hydrox/Mg Hydrox/Simethicone 30 ml 05/04/19 11:46 Mylanta PO Q6H PRN Indigestion Albuterol 2.5 mg 05/05/19 12:00 Albuterol Sulf Neb 2.5mg/0.5ml INHALATION QIDRT PRN wheezing, sob Atorvastatin Calcium 10 mg 05/04/19 09:00 05/06/19 08:51 Lipitor PO 10 mg DAILY SP Administration Bisacodyl 10 mg 05/03/19 17:42 Dulcolax Suppository RECTAL DAILY PRN Constipation Bisacodyl 10 mg 05/04/19 11:46 Dulcolax Suppository RECTAL DAILY PRN Constipation Citalopram Hydrobromide 20 mg 05/04/19 09:00 05/06/19 08:52 Celexa PO 20 mg DAILY SP Administration Citalopram Hydrobromide 10 mg 05/04/19 09:00 05/06/19 08:51 Celexa PO 10 mg DAILY SP Administration Dipyridamole/Aspirin 1 cap 05/04/19 17:00 05/06/19 08:51 Aggrenox 25 Mg-200 Mg Capsule PO 1 cap BID SP Administration Docusate Sodium 100 mg 05/04/19 17:00 05/06/19 08:52 Colace Capsule PO 100 mg BID SP Administration Famotidine 20 mg 05/04/19 21:00 05/06/19 08:52 Pepcid PO 20 mg Q12HR SP Administration Fentanyl Citrate 50 mcg 05/03/19 09:05 05/05/19 14:19 Sublimaze IV PUSH 50 mcg Q4H PRN Administration Pain Rated 7-10 Ferrous Sulfate 324 mg 05/04/19 09:00 05/06/19 08:52 Ferrous Sulfate PO 324 mg DAILY SP Administration Furosemide 20 mg 05/04/19 09:00 05/06/19 08:53 Lasix Tablet PO 20 mg DAILY SP Administration Ibuprofen 400 mg/ Sodium 104 mls @ 200 mls/hr 05/04/19 11:46 Chloride IVPB Q6H PRN Pain Rated 4-6 Sodium Chloride 1,000 mls @ 50 mls/hr 05/06/19 11:35 05/06/19 12:37 Normal Saline Iv IV CONT 50 mls/hr .Q20H SP Administration Ipratropium [place] 0.5 mg 05/05/19 12:00 Atrovent Neb INHALATION QIDRT PRN wheezing, sob Losartan Potassium 50 mg 05/04/19 09:00 05/06/19 08:53 Cozaar PO 50 mg DAILY SP Administration Magnesium Hydroxide 30 ml 05/04/19 11:46 Milk Of Magnesia PO BID PRN Constipation Metoprolol Tartrate 50 mg 05/04/19 09:00 05/06/19 08:53 Lopressor PO 50 mg DAILY SP Administration Morphine Sulfate 1 mg 05/03/19 15:02
[2019-05-06 15:11] LABS: Add Urine Microscopic? YES; Appearance Urine Cloudy (Clear); Bacteria Urine Trace /hpf; Bilirubin Urine Negative (Negative); Blood Urine Negative (Negative); Color Urine Yellow (Yellow); Glucose Urine UA Negative (Negative); Ketones Urine Negative (Negative); Leukocyte Esterase Ur 1+ LEU/UL (Negative); Mucus Urine Rare /lpf; Nitrate Urine Negative (Negative); Protein Urine Negative (Negative); Specific Grav Ur 1.014 (1.001-1.035); Squamous Epithelial Cell Urine Many /hpf (Few); Urobilinogen Urine Negative mg/dL (<2.0)
[2019-05-06 15:23] LABS: Total Protein Urine Random 12 mg/dL
[2019-05-06 15:31] LABS: Sodium Urine Random 29 meq/L
[2019-05-06] MEDS: RIVAROXABAN 10 MG TABLET PO (17:26)
[2019-05-06] MEDS: TRIMETHOPRIM 100 MG TABLET PO (20:21)
[2019-05-07 06:00] VITALS: BP 123/69; PULSE 79; RESP 16; TEMP 36.4; O2SAT 100
[2019-05-07 06:15] LABS: Basophils Percent Auto 0.5 % (0.2-1.2); Eosinophils Absolute Auto 0.2 K/mm3 (0-0.3); Eosinophils Percent Auto 2.9 % (0-4.4); Hematocrit 26.9 % (37.0-47.0); Hemoglobin 8.4 g/dL (12.0-15.0); Immature Granulocyte Absolute 0.03 K/mm3 (0.00-0.031); Immature Granulocyte Percent A 0.5 % (0-0.5); Lymphocytes Absolute Auto 1.04 K/mm3 (0.9-3.2); Lymphocytes Percent Auto 15.7 % (18.3-44.2); Mean Corpuscular HGB Conc 31.2 g/dl (32-36); Mean Corpuscular Hemoglobin 29.9 pg (26-34); Mean Corpuscular Volume 95.7 fl (80-100); Mean Platelet Volume 11.1 fl (7.4-10.4); Monocytes Absolute Auto 0.5 K/mm3 (0.1-0.6); Monocytes Percent Auto 6.8 % (2.6-8.5); Neutrophils Absolute Auto 4.9 K/mm3 (1.3-6.7); Neutrophils Percent Auto 73.6 % (45.5-73.1); Platelet Count Result 144 k/mm3 (150-375); Red Blood Count 2.81 M/mm3 (4.2-5.4); Red Cell Distribution Width 14.9 % (11.5-14.5); White Blood Count 6.6 K/mm3 (4.5-10.0)
[2019-05-07 06:32] LABS: Blood Urea Nitrogen 67 mg/dL (7-17); Carbon Dioxide 26 mmol/L (22-30); Chloride 108 mmol/L (98-107); Estimated CRCL calculation 15 ml/min; Estimated Glomerular Filt Rate 18; Glucose 89 mg/dL (65-105); Magnesium 2.7 mg/dL (1.6-2.3); Potassium 4.4 mmol/L (3.4-5.0); Sodium 138 mmol/L (137-145)
[2019-05-07 08:40] VITALS: BP 138/65; PULSE 79; RESP 18; O2SAT 100
[2019-05-07] MEDS: SODIUM CHLORIDE 0.9% IV 1,000 ML 50 ML IV CONT (08:45)
[2019-05-07] MEDS: CITALOPRAM HYDROBROMIDE 20 MG TABLET PO (08:47)
[2019-05-07] MEDS: ATORVASTATIN 10 MG TABLET PO (08:47)
[2019-05-07] MEDS: CITALOPRAM HYDROBROMIDE 10 MG TABLET PO (08:48)
[2019-05-07] MEDS: FERROUS SULFATE 324 MG TABLET PO (08:48)
[2019-05-07] MEDS: FUROSEMIDE 20 MG TABLET PO (08:48)
[2019-05-07] MEDS: DOCUSATE SODIUM 100 MG CAPSULE PO ×2 (08:48→16:41)
[2019-05-07] MEDS: FAMOTIDINE 20 MG TABLET PO ×2 (08:48→20:13)
[2019-05-07 08:49] VITALS: PULSE 79
[2019-05-07] MEDS: LOSARTAN POTASSIUM 50 MG TABLET PO (08:49)
[2019-05-07] MEDS: METOPROLOL TARTRATE 50 MG TAB PO (08:49)
[2019-05-07] MEDS: PANTOPRAZOLE 40 MG TABLET PO ×2 (08:49→20:13)
[2019-05-07] MEDS: ACETAMINOPHEN 325 MG TABLET 650 MG PO ×2 (09:17→19:56)
--- NOTE | 2019-05-07 11:10 | PM.IMPN ---
Progress Note: A&P Assessment and Plan (1) Displaced intertrochanteric fracture of right femur, initial encounter for closed fracture: Code(s): S72.141A - Displaced intertrochanteric fracture of right femur, initial encounter for closed fracture Status: Acute Assessment and Plan: POD 3 right hip repair per Dr. Hood. Patient transfused [address] Hood for blood loss from surgery. Daughter states she is doing well since surgery and worked well with therapy today. Post op management, pain management, therapy, and DVT ppx per Dr. Hood Patient will likely be going to SNF on discharge PT/OT following Given patient's chronic mental status and that she first worked well with therapy today, will likely keep patient overnight for additional therapy and possibly discharge tomorrow. (2) Chronic kidney disease, stage 4, severely decreased GFR: Code(s): N18.4 - Chronic kidney disease, stage 4 (severe) Status: Acute Assessment and Plan: Cr 2.5 today; improving. Patient follows Dr. Roldan Trend tomorrow Stop IVF as patient has adequate PO intake and want to avoid volume overload Renal US showed b/l renal atrophy left>right Nephrology following and appreciate recommendations (3) HTN (hypertension): Code(s): I10 - Essential (primary) hypertension Status: Acute Assessment and Plan: BP stable at 130s sys today. Continue home antihypertensives Trend (4) CVA (cerebral vascular accident): Qualifiers: CVA mechanism: occlusion Precerebral and cerebral artery: unspecified cerebral artery Qualified Code(s): I63.50 - Cerebral infarction due to unspecified occlusion or stenosis of unspecified cerebral artery Code(s): I63.9 - Cerebral infarction, unspecified Status: Acute Assessment and Plan: Old CVA, Patient is at baseline continue statins (5) CAD (coronary artery disease): Qualifiers: Coronary Disease-Associated Artery/Lesion type: unspecified vessel or lesion type [place] vs. transplanted heart: [place] heart Associated angina: without angina Qualified Code(s): I25.10 - Atherosclerotic heart disease of [place] coronary artery without angina pectoris Code(s): I25.10 - Atherosclerotic heart disease of [place] coronary artery without angina pectoris Status: Chronic Assessment and Plan: Chronic and stable, continue home meds (6) Anemia: Qualifiers: Anemia type: other cause Other causes of anemia: acute posthemorrhagic Qualified Code(s): D62 - Acute posthemorrhagic anemia Code(s): D64.9 - Anemia, unspecified Status: Acute Assessment and Plan: Stable; Hgb 8.4 today. Appears to have anemia of chronic disease; likely CKD. Acute on chronic with blood loss from surgery. Patient transfused [address] Hood Monitor; trend Hgb tomorrow transfuse as needed Subjective Date/time seen: 05/07/19 11:10 Interval history: Patient is a 84 yo F with history of CAD, CVA, dementia, HTN, and CKD stage 4 among other several other comorbidities who is here for treatment for right femur fracture s/p ground level fall; POD 3 right hip repair. Patient states she feels okay. No complaints. She states she has no pain anywhere, but she is a not a reliable historian given her dementia. Daughter states she had pain this morning, but Daughter also notes her pain has been reasonable and not asking for fentanyl today. Patient able to answer yes/no questions and upon questioning, denies fevers, cp/palpitations, cough, n/v, abd pain. Review of Systems Review of Systems: All systems reviewed & are unremarkable except as noted in HPI and below (Limited due to mental status) Exam
[2019-05-07 13:39] VITALS: BP 100/60; PULSE 82; RESP 20; TEMP 37; O2SAT 94
--- NOTE | 2019-05-07 15:53 | PM.PNNEP ---
Progress Note: A&P Assessment and Plan (1) CKD (chronic kidney disease): Qualifiers: Chronic kidney disease stage: unspecified stage Qualified Code(s): N18.9 - Chronic kidney disease, unspecified Code(s): N18.9 - Chronic kidney disease, unspecified Status: Acute Assessment and Plan: creatinine was 1.0 - 1.2 in 2018 - 2018 creatinine abruptly increased to 2.3mg/dl in October 2018 where it has remained creatinine relatively stable has history of UTI and dehydration in the past - UA somewhat suggestive of UTI (culture pending) - urine electrolytes suggestive of prerenal azotemia - renal u/s consistent with CKD follow repeat labs and UOP (2) Intertrochanteric fracture of right femur: Onset Date: 05/04/19 Qualifiers: Encounter type: subsequent encounter Fracture type: closed Fracture alignment: displaced Fracture healing: with routine healing Qualified Code(s): S72.141D - Displaced intertrochanteric fracture of right femur, subsequent encounter for closed fracture with routine healing Code(s): S72.141A - Displaced intertrochanteric fracture of right femur, initial encounter for closed fracture Status: Acute Assessment and Plan: s/p hip fracture reduction with intramedullary hip screw fixation Orthopedics following local wound care pain control (3) Anemia: Qualifiers: Anemia type: other cause Other causes of anemia: acute posthemorrhagic Qualified Code(s): D62 - Acute posthemorrhagic anemia Code(s): D64.9 - Anemia, unspecified Status: Acute Assessment and Plan: partly due to CKD but post-operative loss as well s/p PRBC transfusion follow H/H (4) HTN (hypertension): Code(s): I10 - Essential (primary) hypertension Status: Acute Assessment and Plan: reasonable control at this time would avoid overcontrol as this may reduce renal perfusion Will continue to follow. Subjective Date/time seen: 05/07/19 15:53 Off IVFs as apparently eating/drinking okay; some confusion on my visit but no different than baseline/my first visit (presumably secondary to her dementia); pain control appears reasonably; no other acute complaints voiced or problems overnight/early this AM. Exam Narrative: Exam Narrative: General: Elderly female in NAD Heart: normal S1 and S2; no rub Lungs: clear to auscultation Abdomen: soft, nontender, nondistended, positive bowel sounds Extremities: no cyanosis or clubbing; trace edema Skin: warm and intact Objective Data Vital Signs Vital Signs: Vital Signs Temp Pulse Resp BP Pulse Ox 05/07/19 13:39 37.0 C 82 20 100/60 94 05/07/19 08:49 79 05/07/19 08:40 79 18 138/65 100 05/07/19 06:00 36.4 C L 79 16 123/69 100 05/06/19 22:00 36.5 C 78 16 112/68 98 Intake/Output Intake/Output: Intake & Output 05/04/19 05/05/19 05/06/19 05/07/19 23:59 23:59 23:59 23:59 Intake Total 775 8654 232 1477 Output Total 655 750 250 250 Balance 120 847 090 2094 Meds/Results Medications: Active Medications Generic Name Dose Route Start Last Admin Trade Name Freq PRN Reason Stop Dose Admin Acetaminophen 650 mg 05/03/19 17:42 05/07/19 09:17 Tylenol Tablet PO 650 mg Q4H PRN Administration Fever Or Pain Al Hydrox/Mg Hydrox/Simethicone 30 ml 05/04/19 11:46 Mylanta PO Q6H PRN Indigestion Albuterol 2.5 mg 05/05/19 12:00 Albuterol Sulf Neb 2.5mg/0.5ml INHALATION QIDRT PRN wheezing, sob Atorvastatin Calcium 10 mg 05/04/19 09:00 05/07/19 08:47 Lipitor PO 10 mg DAILY SP Administration Bisacodyl 10 mg 05/04/19 11:46 Dulcolax Suppository RECTAL DAILY PRN Constipation Citalopram Hydrobromide 20 mg 05/04/19 09:00 05/07/19 08:47 Celexa PO 20 mg DAILY SP Administration Citalopram Hydrobromide 10 mg 05/04/19 09:00 05/07/19 08:48
--- NOTE | 2019-05-07 16:21 | PM.PNORT ---
Progress Note: A&P Additional Plan POD 3 DOING WELL. TO SNF TOMORROW IF OK WITH MEDICINE. Time Spent With Patient Time with patient: less than 15 minutes Subjective Subjective Date/Time Seen: 05/07/19 16:21 POD 3 DOING WELL. MORE ALERT TODAY. 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 Objective Data Vital Signs Vital Signs: Vital Signs - 24 hr 05/06/19 22:00 05/07/19 06:00 05/07/19 08:40 Temperature 36.5 C 36.4 C L Pulse Rate 78 79 79 Respiratory Rate 16 16 18 Blood Pressure 112/68 123/69 138/65 Pulse Oximetry 98 100 100 05/07/19 08:49 05/07/19 13:39 Temperature 37.0 C Pulse Rate 79 82 Respiratory Rate 20 Blood Pressure 100/60 Pulse Oximetry 94 Intake/Output Intake/Output: Intake & Output 05/04/19 05/05/19 05/06/19 05/07/19 23:59 23:59 23:59 23:59 Intake Total 775 7559 291 2035 Output Total 655 750 250 250 Balance 120 662 537 2854 Meds/Results Medications: Active Medications Generic Name Dose Route Start Last Admin Trade Name Freq PRN Reason Stop Dose Admin Acetaminophen 650 mg 05/03/19 17:42 05/07/19 09:17 Tylenol Tablet PO 650 mg Q4H PRN Administration Fever Or Pain Al Hydrox/Mg Hydrox/Simethicone 30 ml 05/04/19 11:46 Mylanta PO Q6H PRN Indigestion Albuterol 2.5 mg 05/05/19 12:00 Albuterol Sulf Neb 2.5mg/0.5ml INHALATION QIDRT PRN wheezing, sob Atorvastatin Calcium 10 mg 05/04/19 09:00 05/07/19 08:47 Lipitor PO 10 mg DAILY SP Administration Bisacodyl 10 mg 05/04/19 11:46 Dulcolax Suppository RECTAL DAILY PRN Constipation Citalopram Hydrobromide 20 mg 05/04/19 09:00 05/07/19 08:47 Celexa PO 20 mg DAILY SP Administration Citalopram Hydrobromide 10 mg 05/04/19 09:00 05/07/19 08:48 Celexa PO 10 mg DAILY SP Administration Dipyridamole/Aspirin 1 cap 05/04/19 17:00 05/07/19 08:47 Aggrenox 25 Mg-200 Mg Capsule PO 1 cap BID [facility] Administration Docusate Sodium 100 mg 05/04/19 17:00 05/07/19 08:48 Colace Capsule PO 100 mg BID [facility] Administration Famotidine 20 mg 05/04/19 21:00 05/07/19 08:48 Pepcid PO 20 mg Q12HR SP Administration Ferrous Sulfate 324 mg 05/04/19 09:00 05/07/19 08:48 Ferrous Sulfate PO 324 mg DAILY [facility] Administration Furosemide 20 mg 05/04/19 09:00 05/07/19 08:48 Lasix Tablet PO 20 mg DAILY [facility] Administration Ibuprofen 400 mg/ Sodium 104 mls @ 200 mls/hr 05/04/19 11:46 Chloride IVPB Q6H PRN Pain Rated 4-6 Ipratropium [place] 0.5 mg 05/05/19 12:00 Atrovent Neb INHALATION QIDRT PRN wheezing, sob Losartan Potassium 50 mg 05/04/19 09:00 05/07/19 08:49 Cozaar PO 50 mg DAILY [facility] Administration Magnesium Hydroxide 30 ml 05/04/19 11:46 Milk Of Magnesia PO BID PRN Constipation Metoprolol Tartrate 50 mg 05/04/19 09:00 05/07/19 08:49 Lopressor PO 50 mg DAILY [facility] Administration Morphine Sulfate 1 mg 05/03/19 15:02 05/05/19 12:14 Morphine Sulfate Inj IV PUSH 1 mg Q8HR PRN Administration Breakthrough Pain Naloxone HCl 0.1 mg 05/04/19 11:46 Narcan IV PUSH Q2M PRN Opiate Reversal Oxycodone HCl 5 mg 05/04/19 11:46 Roxicodone Ir Tablet PO Q4H PRN Pain Rated 7-10 Pantoprazole Sodium 40 mg 05/03/19 21:00 05/07/19 08:49 Protonix PO 40 mg Q12HR [facility] Administration Promethazine HCl 12.5 mg 05/03/19 17:42 Phenergan Tab PO QID PRN Nausea And Vomiting Rivaroxaban 10 mg 05/04/19 17:00 05/06/19 17:26 Xarelto PO 10 mg DAILY@17 [facility] Administration Trimethoprim 100 mg 05/03/19 21:00 05/06/19 20:21 Proloprim PO 100 mg HS SP Administration Radiology Results: ITS Impressions Hip/Pelvis X-Ray 05/03/19 07:55 IMPRESSION: Comminuted intertrochanteric fracture of right femur Chest X-Ray 05/03/19 08:04 I
[2019-05-07] MEDS: RIVAROXABAN 10 MG TABLET PO (17:39)
[2019-05-07] MEDS: TRIMETHOPRIM 100 MG TABLET PO (20:13)
[2019-05-07 21:34] VITALS: BP 134/53; PULSE 73; RESP 18; TEMP 36.9; O2SAT 100
[2019-05-08] MEDS: BISACODYL 10 MG SUPPOSITORY RECTAL (02:04)
[2019-05-08] MEDS: ACETAMINOPHEN 325 MG TABLET 650 MG PO ×2 (02:20→08:42)
[2019-05-08 06:00] VITALS: BP 158/63; PULSE 85; RESP 20; TEMP 36.6; O2SAT 97
[2019-05-08 06:24] LABS: Hematocrit 26.4 % (37.0-47.0); Hemoglobin 8.6 g/dL (12.0-15.0); Mean Corpuscular HGB Conc 32.6 g/dl (32-36); Mean Corpuscular Hemoglobin 30.5 pg (26-34); Mean Corpuscular Volume 93.6 fl (80-100); Mean Platelet Volume 10.9 fl (7.4-10.4); Platelet Count Result 164 k/mm3 (150-375); Red Blood Count 2.82 M/mm3 (4.2-5.4); Red Cell Distribution Width 14.2 % (11.5-14.5); White Blood Count 6.2 K/mm3 (4.5-10.0)
[2019-05-08 06:38] LABS: Blood Urea Nitrogen 60 mg/dL (7-17); Calcium 8.2 mg/dL (8.4-10.2); Carbon Dioxide 25 mmol/L (22-30); Chloride 109 mmol/L (98-107); Estimated CRCL calculation 19 ml/min; Estimated Glomerular Filt Rate 24; Glucose 99 mg/dL (65-105); Magnesium 2.5 mg/dL (1.6-2.3); Potassium 4.1 mmol/L (3.4-5.0); Sodium 136 mmol/L (137-145)
[2019-05-08 08:00] VITALS: PULSE 85; RESP 20; O2SAT 97
[2019-05-08] MEDS: FUROSEMIDE 20 MG TABLET PO (08:46)
[2019-05-08] MEDS: PANTOPRAZOLE 40 MG TABLET PO (08:47)
[2019-05-08] MEDS: METOPROLOL TARTRATE 50 MG TAB PO (08:47)
[2019-05-08] MEDS: CITALOPRAM HYDROBROMIDE 10 MG TABLET PO (08:47)
[2019-05-08] MEDS: DOCUSATE SODIUM 100 MG CAPSULE PO ×2 (08:47→16:52)
[2019-05-08] MEDS: ATORVASTATIN 10 MG TABLET PO (08:48)
[2019-05-08] MEDS: FERROUS SULFATE 324 MG TABLET PO (08:48)
[2019-05-08] MEDS: LOSARTAN POTASSIUM 50 MG TABLET PO (08:48)
[2019-05-08] MEDS: FAMOTIDINE 20 MG TABLET PO (08:53)
[2019-05-08] MEDS: CITALOPRAM HYDROBROMIDE 20 MG TABLET PO (08:54)
--- NOTE | 2019-05-08 08:54 | PCOTNOTE ---
OT treatment attempted this AM. Per RN and Family, patient did not rest last night and would like therapy to come back at later time.
--- NOTE | 2019-05-08 09:25 | PM.DS ---
DS: Diagnosis Admitting Diagnosis Admitting Diagnosis: Displaced intertrochanteric fracture of right femur, initial encounter for closed fracture Discharge Diagnosis (1) Displaced intertrochanteric fracture of right femur, initial encounter for closed fracture: Code(s): S72.141A - Displaced intertrochanteric fracture of right femur, initial encounter for closed fracture Status: Acute Assessment and Plan: POD #4 - Right hip repair per Dr. Hood. Patient transfused [address] Hood for blood loss from surgery. Daughter states she is doing well since surgery and worked well with therapy yesterday and plans for 1-2 more therapy sessions today prior to discharge to [facility] facility. Post op management, pain management, therapy, and DVT ppx per Dr. Hood (2) Chronic kidney disease, stage 4, severely decreased GFR: Code(s): N18.4 - Chronic kidney disease, stage 4 (severe) Status: Acute Assessment and Plan: Cr 2.0 today; improving. Patient follows Dr. Roldan Renal US showed b/l renal atrophy left>right Nephrology following and believes she is at baseline. (3) HTN (hypertension): Code(s): I10 - Essential (primary) hypertension Status: Acute Assessment and Plan: BP stable at 158/63 this morning before medications. Continue home antihypertensives (4) CVA (cerebral vascular accident): Qualifiers: CVA mechanism: occlusion Precerebral and cerebral artery: unspecified cerebral artery Qualified Code(s): I63.50 - Cerebral infarction due to unspecified occlusion or stenosis of unspecified cerebral artery Code(s): I63.9 - Cerebral infarction, unspecified Status: Acute Assessment and Plan: Old CVA, Patient is at baseline with her expressive aphasia. continue statins (5) CAD (coronary artery disease): Qualifiers: Associated angina: without angina Coronary Disease-Associated Artery/Lesion type: unspecified vessel or lesion type [place] vs. transplanted heart: [place] heart Qualified Code(s): I25.10 - Atherosclerotic heart disease of [place] coronary artery without angina pectoris Code(s): I25.10 - Atherosclerotic heart disease of [place] coronary artery without angina pectoris Status: Chronic Assessment and Plan: Chronic and stable, continue home meds (6) Anemia: Qualifiers: Anemia type: other cause Other causes of anemia: acute posthemorrhagic Qualified Code(s): D62 - Acute posthemorrhagic anemia Code(s): D64.9 - Anemia, unspecified Status: Acute Assessment and Plan: Stable; Hgb 8.6 today. Appears to have anemia of chronic disease; likely CKD. Acute on chronic with blood loss from surgery. Patient transfused [address] Sana Magana. No need for further monitoring. 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 Initial vitals showed temperature of 97.4?, blood pressure 156/67, heart rate 61, respiratory rate 16, oxygen saturation 96% on room air. Initial labs showed WBC 8.7, hemoglobin 9.8 and hematocrit 31.2%, slightly low PTT at 20.3 but otherwise normal coag panel. CMP showed creatinine at 2.5, BUN at 59 which is pretty stable for her, otherwise normal. On arrival, hip and pelvic x-ray showed comminuted intratrochanteric fracture of the right femur. Chest x-ray showed cardiomegaly, no active disease or significant change from prior 10/2018. CT brain showed numerous old infarcts in the brain and stable extensive nonspecific cerebral white mat
[2019-05-08 09:46] VITALS: O2SAT 97
--- NOTE | 2019-05-08 10:20 | PM.PNNEP ---
Progress Note: A&P Assessment and Plan (1) CKD (chronic kidney disease): Qualifiers: Chronic kidney disease stage: unspecified stage Qualified Code(s): N18.9 - Chronic kidney disease, unspecified Code(s): N18.9 - Chronic kidney disease, unspecified Status: Acute Assessment and Plan: creatinine was 1.0 - 1.2 in 2018 - 2018 creatinine abruptly increased to 2.3mg/dl in October 2018 where it has remained creatinine relatively stable todays value is 2.0 will watch the numbers. Discussed with [facility] SNF soon if not today. she can follow up in the office (2) Intertrochanteric fracture of right femur: Onset Date: 05/04/19 Qualifiers: Encounter type: subsequent encounter Fracture type: closed Fracture alignment: displaced Fracture healing: with routine healing Qualified Code(s): S72.141D - Displaced intertrochanteric fracture of right femur, subsequent encounter for closed fracture with routine healing Code(s): S72.141A - Displaced intertrochanteric fracture of right femur, initial encounter for closed fracture Status: Acute Assessment and Plan: s/p hip fracture reduction with intramedullary hip screw fixation Orthopedics following physical therapy (3) Anemia: Qualifiers: Anemia type: other cause Other causes of anemia: acute posthemorrhagic Qualified Code(s): D62 - Acute posthemorrhagic anemia Code(s): D64.9 - Anemia, unspecified Status: Acute Assessment and Plan: partly due to CKD but post-operative loss as well hb is 8.6, stable. (4) HTN (hypertension): Code(s): I10 - Essential (primary) hypertension Status: Acute Assessment and Plan: systolic is all over the place, from 90s to 170s. lately generally 120 to 160. will follow. It will probably settle down when pain is under better control and she gets back on her feet.. would avoid overcontrol as this may reduce renal perfusion keep meds the same for now. Subjective Date/time seen: 05/08/19 10:20 Interval history: pt is feeling okay. no cp or sob. ate a good breakfast. Review of Systems Cardiovascular: Cardiovascular: Reports no additional cardiovascular complaints Respiratory: Respiratory: Reports no additional respiratory complaints Gastrointestinal: Gastrointestinal: Reports no additional gastrointestinal complaints Genitourinary: Genitourinary: Reports no additional female genitourinary complaints Exam Narrative: Exam Narrative: General: Elderly female in NAD Heart: normal S1 and S2; no rub or gallop Lungs: clear to auscultation Abdomen: soft, nontender, nondistended, positive bowel sounds Extremities: no cyanosis or clubbing; trace edema Skin: warm and intact without rash Objective Data Vital Signs Vital Signs: Vital Signs - 24 hr 05/07/19 13:39 05/07/19 21:34 05/08/19 06:00 Temperature 37.0 C 36.9 C 36.6 C Pulse Rate 82 73 85 Respiratory Rate 20 18 20 Blood Pressure 100/60 134/53 L 158/63 H Pulse Oximetry 94 100 97 05/08/19 08:00 05/08/19 09:46 Temperature Pulse Rate 85 Respiratory Rate 20 Blood Pressure Pulse Oximetry 97 97 Intake/Output Intake/Output: Intake & Output 05/05/19 05/06/19 05/07/19 05/08/19 23:59 23:59 23:59 23:59 Intake Total 9966 719 2009 360 Output Total 750 250 250 250 Balance 081 593 8390 110 Meds/Results Medications: Active Medications Generic Name Dose Route Start Last Admin Trade Name Freq PRN Reason Stop Dose Admin Acetaminophen 650 mg 05/03/19 17:42 05/08/19 08:42 Tylenol Tablet PO 650 mg Q4H PRN Administration Fever Or Pain Al Hydrox/Mg Hydrox/Simethicone 30 ml 05/04/19 11:46 Mylanta PO Q6H PRN Indigestion Albuterol 2.5 mg 05/05/19 12:00 Albuterol Sulf Neb 2.5mg/0.5ml INHALATION QIDRT PRN wheezing, sob Atorvastatin Calcium 10 mg 05/04/19 09:00 05/08/19 08:48 Lipitor
[2019-05-08 12:15] VITALS: BMI 10.0
[2019-05-08 14:00] VITALS: BP 140/61; PULSE 80; RESP 18; TEMP 36.7; O2SAT 98
[2019-05-08] MEDS: RIVAROXABAN 10 MG TABLET PO (16:51)
== END 2019-05-08 17:15 | DRG 481 ==
LOC: ANHED 09:09 → ANH3MEDSUR 09:39
PROVIDERS: Internal Medicine Nephrology; Orthopaedic Surgery; Physician Assistant; Admitting Provider Family Medicine; Emergency Provider Emergency Medicine; PCP Internal Medicine; Visit Provider Physician Assistant
PROC: 0QS636Z Reposition Right Upper Femur with Intramedullary Internal Fixation Device, Percutaneous Approach (ICD-10-PCS; CPT 27245; principal; 2019-05-04 09:00)
DX: S72.141A Displaced intertrochanteric fracture of right femur, initial encounter for closed fracture (principal); N18.4 Chronic kidney disease, stage 4 (severe); D62 Acute posthemorrhagic anemia; W06.XXXA Fall from bed, initial encounter; I69.398 Other sequelae of cerebral infarction; R41.0 Disorientation, unspecified; I25.10 Atherosclerotic heart disease of native coronary artery without angina pectoris; Z86.718 Personal history of other venous thrombosis and embolism; J84.10 Pulmonary fibrosis, unspecified; I12.9 Hypertensive chronic kidney disease with stage 1 through stage 4 chronic kidney disease, or unspecified chronic kidney disease; I71.4 Abdominal aortic aneurysm, without rupture; F41.8 Other specified anxiety disorders; K21.9 Gastro-esophageal reflux disease without esophagitis; K44.9 Diaphragmatic hernia without obstruction or gangrene; I25.2 Old myocardial infarction; Z95.1 Presence of aortocoronary bypass graft; I69.320 Aphasia following cerebral infarction
CPT/HCPCS: 36415; 36430; 70450; 71045; 72125; 73502; 76775; 80048; 80053; 81001; 81050; 82570; 83735; 84156; 84300; 85025; 85027; 85055; 85610; 85730; 86850; 86900; 86901; 86920; 87086; 87088; 94640; 96374; 96376; 97110; 97161; 97165; 97530; 97535; 99285; A9270; C1713; J0690; J1100; J2270; J2370; J2405; J2704; J3010; J7030; J7050; J7120; P9016